=== PATIENT | male | born 1950 | race Caucasian/White ===

== ENCOUNTER 2024-08-15 16:13 | Inpatient (IN) ==
[2024-08-15] MEDS: APRESOLINE INJ 20 MG VIAL IVP ONE ×2 (16:25→21:50)
--- NOTE | 2024-08-15 16:29 | DR.EXTPAIN ---
HPI Time seen Time Seen by Provider: 08/15/24 16:28 PCP Primary Care Physician: NA Complaint/Symptoms Chief Complaint Doctor Comments: This patient fell at home while he was trying to get onto the school this in the house. Now has due to to left chest his skin tear down his left arm and he is a little bit disoriented. Chief Complaint:: Patient was trying to get off the bed and fell and hit his left forearm on the dresser. patient states he has been having more frequent falls. c/o of left forearm pain and back pain but states the back pain was hurting before the fall. patient has a avulsion noted to the left forearm. denies hitting his head. COVID-19 Coronavirus risk:travel/contact w/high risk person: No Has patient experienced Coronavirus symptoms: No Source History Provided: Patient Mode of arrival Mode of Arrival: EMS Timing Onset of Chief Complaint: 08/15/24 PMH PMH Past Medical History: Yes Past Medical History: Hypertension Past Surgical History: Yes Surgical History: Cholecystectomy and Ortho Surgery Past Surgical History Comment: right leg, left hip, left knee Family History History of Family Medical Conditions: Yes Family Medical History: Diabetes Mellitus Social History Does patient currently use any type of tobacco product: Yes Have you used tobacco products in the last 12 months: Yes Type of Tobacco Use: Cigarettes Does any household member use tobacco: Yes Alcohol Use: Occasionally Do you use any recreational Drugs:: No Lives With: Spouse Lives Where: Home Travel Risk Coronavirus risk:travel/contact w/high risk person: No Has patient experienced Coronavirus symptoms: No Infectious screening In the last 2 months have you had wt loss of >10#?: NO Have you had fever, night sweats or hemotysis?: No Have you traveled outside the country in the last 6 months?: No Isolation: Standard ROS Review of Systems Constitutional: Other (Complain of left arm pain with skin tear left side with pain in left shoulder and left flank.) Eyes: No Symptoms Reported ENTM: No Symptoms Reported Respiratoy: No Symptoms Reported Cardiovascular: No Symptoms Reported Gastrointestinal/Abdominal: No Symptoms Reported Genitourinary: No Symptoms Reported Neurological: No Symptoms Reported Musculoskeletal: Left, Shoulder and Arm (pain) Integumentary: Wound (left arm) and Bruises (left arm) Hematologic/Lymphatic: No Symptoms Reported Endocrine: No Symptoms Reported Psychiatric: Depression PE Vital Signs Vitals: Vital Signs Temperature 98.1 F Pulse Rate 72 Pulse Rate 71 Pulse Rate 70 Pulse Rate 69 Pulse Rate 64 Pulse Rate 67 Pulse Rate 70 Pulse Rate 72 Pulse Rate 72 Pulse Rate 73 Pulse Rate 72 Pulse Rate 73 Respiratory Rate 18 Respiratory Rate 18 Respiratory Rate 18 Respiratory Rate 18 Respiratory Rate 18 Blood Pressure 197/91 Blood Pressure 202/86 Blood Pressure 220/97 Blood Pressure 167/120 Blood Pressure 167/120 Blood Pressure 174/81 Blood Pressure 205/93 Blood Pressure 163/126 Blood Pressure 161/77 Blood Pressure 173/77 Blood Pressure 202/86 Blood Pressure 237/105 O2 Sat by Pulse Oximetry 96 O2 Sat by Pulse Oximetry 95 O2 Sat by Pulse Oximetry 95 O2 Sat by Pulse Oximetry 95 O2 Sat by Pulse Oximetry 95 O2 Sat by Pulse Oximetry 96 O2 Sat by Pulse Oximetry 94 O2 Sat by Pulse Oximetry 97 O2 Sat by Pulse Oximetry 96 O2 Sat by Pulse Oximetry 98 O2 Sat by Pulse Oximetry 95 General Limitations: Physical Limitation (bed bound) General Appearance: Lethargic and Obtunded Head Head Exam: Normal Inspection, Atraumatic and Normocephalic Eyes Eye exam: Normal Appearance and PERRL ENT ENT Exam: Normal Exam and Normal Oropharynx Neck Neck Exam: Normal Inspection and Full ROM Chest Chest Inspection: Tenderness (left flank) Respiratory Respiratory Exam: Normal Lung Sounds Bilat Respiratory Exam: Bilateral: Clear to Auscultation Cardiovascular Cardiovascular Exam: Regular Rate Abdominal Exam Abdominal Exam: Normal Inspection and Normal Bowel Sounds Extremities Extremities Exam: Tenderness and Other (skintears and lacerations to left upper arm and forearm) Upper Extremities Shoulder Exam: Tenderness (left shoulder) Arm Exam: Tenderness, Abrasion (left forearm and upper arm) and Laceration (left elbow and forearm) Elbow Exam: Abrasion (left elbow), Laceration (left elbow) and Other (skin tears left forearm and upper arm) Forearm Exam: Tenderness (left) Hand Exam: Normal Inspection Lower Extremities Hip/Pelvis Exam: Normal Inspection Upper Leg Exam: Normal Inspection Knee Exam: Normal Inspection Lower Leg Exam: Normal Inspection Ankle Exam: Normal Inspection Foot/Toe Exam: Normal Inspection Gait Exam: Not Tested/Not Observed Back Back Exam: Normal Inspection Neurological Neurological Exam: Other (disoriented) Psychiatric Psychiatric Exam: Depressed Skin Skin Exam: Other (Abrasion with skin tears and laceration to left forearm elbow and upper arm) MDM Differential Diagnosis Differential Diagnosis: Fracture (left upper,left elbow,left forearm/left shoulder), Laceration (left elbow and forearm) and Other (skin tears to left forearm) COURSE Treatment Treatment: This patient remained relatively stable during ER visit. He had pain he required total of 4 mg morphine IV along with Zofran 4 mg IV for pain. We did do a CT scan of his chest is show a possible acute T12 compression fracture. There was a left rib fracture which is probably old and hit bilateral surgical neck humeral fracture is the age is undetermined it was found out later that the patient had fractured that left humeral about a month ago. Since the patient had always findings and he had a laceration to his left elbow with some abraded versions abrasion and skin tears we consulted with Dr. Dee about this patient and he stated we could wrap that left elbow up and we can put the patient in for further treatment he will evaluate the patient tomorrow determine what other treatment can be offered to him he may go we put him in for rehab after he does what ever procedure he is going to do. He wanted the patient to be on Ancef for antibiotic coverage. The patient spouse was told of the intent to admit and she was agreeable to the admission. Patient will be given Ancef 2 g IV every 8 hours 8 hours. And will be given magnesium sulfate 1 g IV over 1 hour. ROR Labs Reviewed Laboratory Results Reviewed?: Yes 08/15/24 20:15 08/15/24 20:15 Laboratory: WBC 11.3 X10^3/uL (3.6-10.0) H 08/15/24 20:15 RBC 4.00 X10^6/uL (4.7-6.0) L 08/15/24 20:15 Hgb 14.0 g/dL (13.5-18.0) 08/15/24 20:15 Hct 40.7 % (42.0-54.0) L 08/15/24 20:15 MCV 101.7 fL (80.0-100.0) H 08/15/24 20:15 MCH 35.1 pg (27.0-34.0) H 08/15/24 20:15 MCHC 34.5 g/dL (33.0-35.0) 08/15/24 20:15 RDW 14.3 % (11.6-16.5) 08/15/24 20:15 Plt Count 210 X10^3/uL (150.0-450.0) 08/15/24 20:15 MPV 7.3 fL (7.4-11.0) L 08/15/24 20:15 Neut % (Auto) 82.6 % (42.0-75.0) H 08/15/24 20:15 Lymph % (Auto) 10.7 % (21.0-51.0) L 08/15/24 20:15 [place] % (Auto) 5.7 % (0.0-13.0) 08/15/24 20:15 Eos % (Auto) 0.4 % (0.9-2.9) L 08/15/24 20:15 Baso % (Auto) 0.6 % (0.2-1.0) 08/15/24 20:15 Neut # (Auto) 9.3 x10^3/uL (2.2-4.8) H 08/15/24 20:15 Lymph # (Auto) 1.2 X10^3/uL (1.3-2.9) L 08/15/24 20:15 [place] # (Auto) 0.6 x10^3/uL (0.3-0.8) 08/15/24 20:15 Eos # (Auto) 0.0 x10^3/uL (0.0-0.2) 08/15/24 20:15 Baso # (Auto) 0.1 X10^3/uL (0.0-0.1) 08/15/24 20:15 Absolute Nucleated RBC 0.1 /100WBC 08/15/24 20:15 Sodium 142 mmol/L (136-145) 08/15/24 20:15 Corrected Sodium 142 mmol/L (136-145) 08/15/24 20:15 Potassium 4.1 mmol/L (3.5-5.1) 08/15/24 20:15 Chloride 106 mmol/L (98-107) 08/15/24 20:15 Carbon Dioxide 26.9 mmol/L (21-32) 08/15/24 20:15 BUN 13 mg/dL (7-18) 08/15/24 20:15 Creatinine 0.81 mg/dL (0.70-1.30) 08/15/24 20:15 Est GFR (MDRD) Af Amer > 60 (>60) 08/15/24 20:15 Est GFR (MDRD) Non-Af > 60 (>60) 08/15/24 20:15 Glucose 117 mg/dL (65-99) H 08/15/24 20:15 Calcium 8.6 mg/dL (8.5-10.1) 08/15/24 20:15 Corrected Calcium 9.3 mg/dL (8.5-10.1) 08/15/24 20:15 Magnesium 1.6 mg/dL (2.0-2.9) L 08/15/24 20:15 Total Bilirubin 0.40 mg/dL (0.2-1.0) 08/15/24 20:15 AST 22 Units/L (15-37) 08/15/24 20:15 ALT 28 Units/L (12-78) 08/15/24 20:15 Alkaline Phosphatase 109 Units/L (46-116) 08/15/24 20:15 Total Protein 7.0 g/dL (6.4-8.2) 08/15/24 20:15 Albumin 3.1 g/dL (3.4-5.0) L 08/15/24 20:15 Globulin 3.9 g/dL (2.5-4.5) 08/15/24 20:15 Albumin/Globulin Ratio 0.8 Ratio (1.1-2.1) L 08/15/24 20:15 Opioid Opioid Risk Tool Age (Henry box if 16-45): No History of Preadolescent Sexual Abuse: No Total: 0 Total Score Risk Category: Low Risk Copyright: Silviano ALDRIDGE predicting aberrant behaviors Discharge Plan Diagnosis Discharge Problem: Laceration of elbow, left, T12 compression fracture Discharge Plan Patient Disposition: 09 ADMITTED INPATIENT Condition: Stable Prescriptions: No Action methocarbamol 500 mg tablet 500 - 1,000 mg PO TID PRN (Reason: muscle spasm) alendronate 70 mg tablet 70 mg PO QWEEK doxepin 10 mg capsule 10 mg PO QPM aspirin 81 mg Tablet,Delayed Release (Dr/Ec) 81 mg PO QDAY trazodone 300 mg tablet 300 mg PO QPM bupropion HCl 300 mg tablet extended release 24 hr 300 mg PO QDAY baclofen 5 mg tablet 5 mg PO TID hydromorphone [Dilaudid] 2 mg tablet 2 mg PO Q8H MDD 6 mg Qty: 10 0RF hydrocodone-acetaminophen 5-325 mg tablet 1 tab PO Q6H PRN cephalexin 500 mg capsule 500 mg PO TID Trelegy Ellipta 100-62.5-25 mcg blister with device 1 ea INHALATION QDAY Health Concerns: Post Hospitalization: new medications and changes needed to prevent readmission or further decline. Pt educated and given instructions on all concerns. Plan of Treatment: Continue with present treatment and follow up plan. Pt is to keep follow up appointment as instructed and take medications as ordered. Orders to Discharge Patient Discharge Orders: Transfer (Routine); Ordered 08/15/24 Ordered By: Aj Stevenson Follow ups/Referrals Follow ups/Referrals: [facility],None [Primary Care Provider] - 3 days
--- NOTE | 2024-08-15 17:28 | CT ---
EXAM: HEAD CT WITHOUT INTRAVENOUS CONTRASTHISTORY: Traumatic fall head injury.TECHNIQUE: Spiral axial CT images are obtained through the brain without the administration of intravenous contrast. Additional sagittal and coronal reformatted images are reconstructed.DOSIMETRY: Total DLP 959.64 mGycm; CTDI 48 mGyCOMPARISON: None available.FINDINGS:There are extensive patchy parenchymal lucencies within the white matter tracks of the centrum semiovale, consistent with chronic sequela of atherosclerotic microvascular ischemic disease. Atherosclerosis of the intracranial ICAs and vertebral arteries is seen.There is diffuse cerebral cortical atrophy. The centrum semiovale, basal ganglia, cerebellum, and brainstem are otherwise grossly unremarkable for a noncontrast CT scan. There is no acute intracranial hemorrhage, gross acute infarction, mass lesion, midline shift, or hydrocephalus seen. No extra-axial mass or abnormal fluid collection noted.The calvarium is intact. The partially imaged paranasal sinuses, middle ear cavities and mastoid air cells are clear.IMPRESSION:1. No skull fracture, intracranial hemorrhage, mass lesion, midline shift, or hydrocephalus seen.2. Chronic microvascular ischemic disease, but no discernible acute infarction seen. Consider followup MRI with diffusion-weighted imaging to rule out occult acute infarction if clinically warranted.3. Atherosclerosis of the intracranial ICAs and vertebral arteries is seen. Consider follow-up MRA as clinically warranted.THIS IS AN ELECTRONICALLY VERIFIED FINAL [id number]/15/2024 5:25 PM - Electronically signed by Lindsey Gaitan MD
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
[2024-08-15] MEDS ORDERED: MORPHINE SULFATE INJ 2 MG INJ ONE (18:06)
[2024-08-15] MEDS: MORPHINE SULFATE INJ 2 MG INJ IVP ONE ×2 (18:10→19:01)
[2024-08-15] MEDS: ZOFRAN INJ 4 MG VIAL IVP ONE (18:10)
[2024-08-15] MEDS ORDERED: STERILE WATER IRRIGATION IR ONE (18:33)
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
[2024-08-15] MEDS: STERILE WATER IRRIGATION IR ONE (19:04)
[2024-08-15 20:22] LABS: BASOPHILS # (AUTO) 0.1 X10^3/uL (0.0-0.1); BASOPHILS % (AUTO) 0.6 % (0.2-1.0); EOSINOPHILS % (AUTO) 0.4 % (0.9-2.9); HEMATOCRIT 40.7 % (42.0-54.0); LYMPHOCYTES # (AUTO) 1.2 X10^3/uL (1.3-2.9); LYMPHOCYTES % (AUTO) 10.7 % (21.0-51.0); MEAN CORPUSCULAR HEMOGLOBIN 35.1 pg (27.0-34.0); MEAN CORPUSCULAR HGB CONC 34.5 g/dL (33.0-35.0); MEAN CORPUSCULAR VOLUME 101.7 fL (80.0-100.0); MEAN PLATELET VOLUME 7.3 fL (7.4-11.0); MONOCYTES # (AUTO) 0.6 x10^3/uL (0.3-0.8); MONOCYTES % (AUTO) 5.7 % (0.0-13.0); NEUTROPHILS # (AUTO) 9.3 x10^3/uL (2.2-4.8); NEUTROPHILS % (AUTO) 82.6 % (42.0-75.0); PLATELET COUNT 210 X10^3/uL (150.0-450.0); RED CELL DISTRIBUTION WIDTH 14.3 % (11.6-16.5); WHITE BLOOD COUNT 11.3 X10^3/uL (3.6-10.0)
[2024-08-15] MEDS ORDERED: ANCEF VIAL 1 GRAM ONE (20:27)
[2024-08-15] MEDS: ANCEF VIAL 1 GRAM IVP SCH (20:29)
[2024-08-15] MEDS: NS 1,000 ML IV 1,000 ML IV SCH (20:30)
[2024-08-15 20:39] LABS: ALANINE AMINOTRANSFERASE 28 Units/L (12-78); ALBUMIN 3.1 g/dL (3.4-5.0); ALKALINE PHOSPHATASE 109 Units/L (46-116); ASPARTATE AMINO TRANSFERASE 22 Units/L (15-37); BLOOD UREA NITROGEN 13 mg/dL (7-18); CALCIUM 8.6 mg/dL (8.5-10.1); CARBON DIOXIDE 26.9 mmol/L (21-32); CHLORIDE 106 mmol/L (98-107); COR CA(FOR HYPOALB) 9.3 mg/dL (8.5-10.1); COR NA(FOR HYPERGLY) 142 mmol/L (136-145); CREATININE 0.81 mg/dL (0.70-1.30); GLUCOSE 117 mg/dL (65-99); MAGNESIUM 1.6 mg/dL (2.0-2.9); POTASSIUM 4.1 mmol/L (3.5-5.1); SODIUM 142 mmol/L (136-145); eGFR NON BLACK RACES > 60 (>60)
[2024-08-15] MEDS ORDERED: MAGNESIUM SULFATE 1 GRAM/100 mL PREMIX 1 G/100 ML BAG IV ONE (21:38)
[2024-08-15] MEDS: MAGNESIUM SULFATE 1 GRAM/100 mL PREMIX 1 G/100 ML BAG IV SCH (21:39)
[2024-08-15] MEDS ORDERED: KETAMINE HCL ONE (21:42)
[2024-08-15] MEDS ORDERED: PRECEDEX INJ VIAL ONE (21:42)
[2024-08-15] MEDS ORDERED: ANCEF VIAL 1 GRAM IVP SCH (22:00)
[2024-08-15 23:35] VITALS: BMI 26.4
[2024-08-15 23:51] LABS: BILIRUBIN,URINE NEGATIVE (NEGATIVE); BLOOD/HEMOGLOBIN,URINE NEGATIVE (NEGATIVE); GLUCOSE, URINE NEGATIVE (NEGATIVE); KETONES,URINE NEGATIVE (NEGATIVE); LEUKOCYTE ESTERASE ,URINE NEGATIVE (NEGATIVE); NITRITES,URINE NEGATIVE (NEGATIVE); PROTEIN,URINE 1+ (NEGATIVE); UROBILINOGEN,URINE NORMAL (NORMAL)
[2024-08-16 00:02] LABS: APPEARANCE,URINE CLEAR (CLEAR); COLOR,URINE YELLOW (YELLOW)
[2024-08-16 00:13] LABS: BACTERIA,URINE TRACE /HPF (NEGATIVE); SQUAMOUS EPITHELIAL CELL,UR FEW /HPF (NEGATIVE)
[2024-08-16 06:37] LABS: BASOPHILS # (AUTO) 0.1 X10^3/uL (0.0-0.1); BASOPHILS % (AUTO) 0.9 % (0.2-1.0); EOSINOPHILS % (AUTO) 0.5 % (0.9-2.9); HEMATOCRIT 37.6 % (42.0-54.0); LYMPHOCYTES # (AUTO) 1.1 X10^3/uL (1.3-2.9); LYMPHOCYTES % (AUTO) 11.5 % (21.0-51.0); MEAN CORPUSCULAR HGB CONC 34.6 g/dL (33.0-35.0); MEAN PLATELET VOLUME 8.1 fL (7.4-11.0); MONOCYTES # (AUTO) 0.7 x10^3/uL (0.3-0.8); MONOCYTES % (AUTO) 7.5 % (0.0-13.0); NEUTROPHILS # (AUTO) 7.7 x10^3/uL (2.2-4.8); NEUTROPHILS % (AUTO) 79.6 % (42.0-75.0); PLATELET COUNT 243 X10^3/uL (150.0-450.0); RED BLOOD COUNT 3.72 X10^6/uL (4.7-6.0); RED CELL DISTRIBUTION WIDTH 14.1 % (11.6-16.5); WHITE BLOOD COUNT 9.6 X10^3/uL (3.6-10.0)
[2024-08-16 06:50] LABS: ALANINE AMINOTRANSFERASE 36 Units/L (12-78); ALKALINE PHOSPHATASE 101 Units/L (46-116); ASPARTATE AMINO TRANSFERASE 22 Units/L (15-37); BLOOD UREA NITROGEN 12 mg/dL (7-18); CALCIUM 8.3 mg/dL (8.5-10.1); CARBON DIOXIDE 30.6 mmol/L (21-32); CHLORIDE 105 mmol/L (98-107); COR CA(FOR HYPOALB) 9.1 mg/dL (8.5-10.1); CREATININE 0.75 mg/dL (0.70-1.30); GLUCOSE 110 mg/dL (65-99); MAGNESIUM 2.4 mg/dL (2.0-2.9); POTASSIUM 3.9 mmol/L (3.5-5.1); SODIUM 140 mmol/L (136-145); TOTAL PROTEIN 6.7 g/dL (6.4-8.2); eGFR NON BLACK RACES > 60 (>60)
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
[2024-08-16] MEDS: APRESOLINE INJ 20 MG VIAL ONE (08:44)
[2024-08-16] MEDS: NS 1,000 ML IV 1,000 ML ONE (08:44)
[2024-08-16] MEDS: ZOFRAN INJ 4 MG VIAL ONE (08:44)
[2024-08-16] MEDS: NS 100 ML IV 100 ML ONE (08:44)
[2024-08-16] MEDS: DUONEB 0.5 MG/3 MG (3 mL) NEB SCH (08:56)
[2024-08-16] MEDS: PULMICORT NEB TX 0.5 MG NEB SCH (08:56)
[2024-08-16] MEDS ORDERED: PATIENT'S HOME MEDICATION (Fluticasone-Umeclidin-Vilanter [Trelegy Ellipta] 100-62.5-25 mc IN SCH (09:00)
[2024-08-16] MEDS ORDERED: PHENOBARBITAL SODIUM INJ 65 MG VIAL IM PRN (09:20)
[2024-08-16] MEDS ORDERED: MAALOX or MYLANTA PO PRN (09:20)
[2024-08-16] MEDS ORDERED: MILK OF MAGNESIA PO PRN (09:20)
[2024-08-16] MEDS ORDERED: LIBRIUM PO PRN (09:20)
[2024-08-16] MEDS ORDERED: KAOPECTATE (NEW FORMULA) PO PRN (09:20)
[2024-08-16] MEDS: WELLBUTRIN XL 300 MG (DAILY) PO SCH (09:27)
[2024-08-16] MEDS: PHENOBARBITAL TAB 30 MG (32.4MG) PO SCH (10:05)
[2024-08-16] MEDS: MAGNESIUM SULFATE 1 GRAM/100 mL PREMIX 1 G/100 ML BAG IV SCH (10:16)
[2024-08-16] MEDS: THIAMINE HCL INJ IVP SCH (10:16)
[2024-08-16] MEDS: PHENOBARBITAL SODIUM INJ 65 MG VIAL IVP SCH (10:19)
[2024-08-16 10:23] LABS: HEMOGLOBIN 13.2 g/dL (13.5-18.0); MEAN CORPUSCULAR HEMOGLOBIN 34.6 pg (27.0-34.0)
[2024-08-16 10:28] LABS: BASOPHILS # (AUTO) 0.1 X10^3/uL (0.0-0.1); BASOPHILS % (AUTO) 0.8 % (0.2-1.0); EOSINOPHILS % (AUTO) 0.5 % (0.9-2.9); HEMATOCRIT 38.5 % (42.0-54.0); LYMPHOCYTES # (AUTO) 1.4 X10^3/uL (1.3-2.9); LYMPHOCYTES % (AUTO) 13.9 % (21.0-51.0); MEAN CORPUSCULAR HGB CONC 34.3 g/dL (33.0-35.0); MEAN CORPUSCULAR VOLUME 100.9 fL (80.0-100.0); MEAN PLATELET VOLUME 7.6 fL (7.4-11.0); MONOCYTES # (AUTO) 0.8 x10^3/uL (0.3-0.8); MONOCYTES % (AUTO) 7.7 % (0.0-13.0); NEUTROPHILS # (AUTO) 7.6 x10^3/uL (2.2-4.8); NEUTROPHILS % (AUTO) 77.1 % (42.0-75.0); PLATELET COUNT 235 X10^3/uL (150.0-450.0); RED BLOOD COUNT 3.81 X10^6/uL (4.7-6.0); WHITE BLOOD COUNT 9.8 X10^3/uL (3.6-10.0)
--- NOTE | 2024-08-16 10:31 | CT ---
EXAM: CT head without contrast HISTORY: AMS; COMPARISON: None TECHNIQUE: Axial, coronal and sagittal CT imaging was performed through the head without contrast administratio n. Dose reduction techniques including Automated Exposure Control (AEC) and adjustment of mA and kV were utilized. FINDINGS: BRAIN: No acute hemorrhage or extraaxial collection. No mass or midline shift. No evidence of acute territorial infarction. Age-appropriate atrophy with moderate chronic microangiopathy and expected size of the ventricles. ORBITS:No significant abnormality. SINUSES:No significant abnormality. SOFT TISSUES: No significant abnormality. BONES: No significant abnormality. IMPRESSION: No acute intracranial abnormality. Other chronic findings as above. THIS IS AN ELECTRONICALLY VERIFIED FINAL REPORT 08/16/2024 10:27 AM - Electronically signed by Ambrocio Saul MD
--- NOTE | 2024-08-16 10:45 | DR.PROGNOT ---
HOSPITAL PROGRESS NOTE Progress Note for Day of: Progress Note Date: 08/16/24 Chief Complaint Chief Complaint: Patient is obtunded today and having some tremors which is somewhat more noticeable than yesterday. White count is 9.8, blood sugar 110, liver function tests are normal, albumin is 3, folate level is low 6.3, B12 is normal. BUN and creatinine are normal. Stable vital signs. Somewhat obtunded and does not answer questions. Past Medical Family Social History Allergies: Allergies lisinopril Allergy (Unknown, Verified 07/16/24 20:50) sulfamethoxazole [From Bactrim] Allergy (Unknown, Verified 07/16/24 20:50) Tetanus Vaccines and Toxoid Allergy (Unknown, Verified 07/16/24 20:50) trimethoprim [From Bactrim] Allergy (Unknown, Verified 07/16/24 20:50) Vital Signs Vital Signs: Vital Signs Temperature 97.8 F Temperature 97.8 F Pulse Rate [Left Radial] 59 Pulse Rate [Left Radial] 85 Pulse Rate 68 Respiratory Rate 19 Respiratory Rate 18 Blood Pressure [Right Arm] 163/71 Blood Pressure [Right Arm] 135/64 O2 Sat by Pulse Oximetry 94 O2 Sat by Pulse Oximetry 95 O2 Sat by Pulse Oximetry 93 Physical Exam Oriented: Not Oriented Eyes: Normal Ear: Normal Nose: Normal Throat: Normal Respiratory: Normal Cardiovascular: Normal GI:Auscultation: Normal GI:Palpation: Normal Musculoskeletal: Arm (Patient has multiple lacerations on the left arm and forearm with avulsed skin, Xeroform dressing in place which will be left intact today) Mood Description: Withdrawn Speech Pattern: Unclear and Inappropriate Laboratory and Diagnostics 08/16/24 10:12 08/16/24 05:28 Labs: Laboratory WBC 9.8 X10^3/uL (3.6-10.0) 08/16/24 10:12 RBC 3.81 X10^6/uL (4.7-6.0) L 08/16/24 10:12 Hgb 13.2 g/dL (13.5-18.0) L 08/16/24 10:12 Hct 38.5 % (42.0-54.0) L 08/16/24 10:12 MCV 100.9 fL (80.0-100.0) H 08/16/24 10:12 MCH 34.6 pg (27.0-34.0) H 08/16/24 10:12 MCHC 34.3 g/dL (33.0-35.0) 08/16/24 10:12 RDW 14.0 % (11.6-16.5) 08/16/24 10:12 Plt Count 235 X10^3/uL (150.0-450.0) 08/16/24 10:12 MPV 7.6 fL (7.4-11.0) 08/16/24 10:12 Neut % (Auto) 77.1 % (42.0-75.0) H 08/16/24 10:12 Lymph % (Auto) 13.9 % (21.0-51.0) L 08/16/24 10:12 [place] % (Auto) 7.7 % (0.0-13.0) 08/16/24 10:12 Eos % (Auto) 0.5 % (0.9-2.9) L 08/16/24 10:12 Baso % (Auto) 0.8 % (0.2-1.0) 08/16/24 10:12 Neut # (Auto) 7.6 x10^3/uL (2.2-4.8) H 08/16/24 10:12 Lymph # (Auto) 1.4 X10^3/uL (1.3-2.9) 08/16/24 10:12 [place] # (Auto) 0.8 x10^3/uL (0.3-0.8) 08/16/24 10:12 Eos # (Auto) 0.0 x10^3/uL (0.0-0.2) 08/16/24 10:12 Baso # (Auto) 0.1 X10^3/uL (0.0-0.1) 08/16/24 10:12 Absolute Nucleated RBC 0.0 /100WBC 08/16/24 10:12 Sodium 140 mmol/L (136-145) 08/16/24 05:28 Corrected Sodium TNP 08/16/24 05:28 Potassium 3.9 mmol/L (3.5-5.1) 08/16/24 05:28 Chloride 105 mmol/L (98-107) 08/16/24 05:28 Carbon Dioxide 30.6 mmol/L (21-32) 08/16/24 05:28 BUN 12 mg/dL (7-18) 08/16/24 05:28 Creatinine 0.75 mg/dL (0.70-1.30) 08/16/24 05:28 Est GFR (MDRD) Af Amer > 60 (>60) 08/16/24 05:28 Est GFR (MDRD) Non-Af > 60 (>60) 08/16/24 05:28 Glucose 110 mg/dL (65-99) H 08/16/24 05:28 POC Glucose (mg/dL) 115 mg/dL (65-99) H 08/16/24 05:26 Calcium 8.3 mg/dL (8.5-10.1) L 08/16/24 05:28 Corrected Calcium 9.1 mg/dL (8.5-10.1) 08/16/24 05:28 Magnesium 2.4 mg/dL (2.0-2.9) 08/16/24 05:28 Total Bilirubin 0.60 mg/dL (0.2-1.0) 08/16/24 05:28 AST 22 Units/L (15-37) 08/16/24 05:28 ALT 36 Units/L (12-78) 08/16/24 05:28 Alkaline Phosphatase 101 Units/L (46-116) 08/16/24 05:28 Total Protein 6.7 g/dL (6.4-8.2) 08/16/24 05:28 Albumin 3.0 g/dL (3.4-5.0) L 08/16/24 05:28 Globulin 3.7 g/dL (2.5-4.5) 08/16/24 05:28 Albumin/Globulin Ratio 0.8 Ratio (1.1-2.1) L 08/16/24 05:28 Vitamin B12 432 pg/mL (193-986) 08/16/24 05:28 Folate 6.3 ng/mL (>8.6) L 08/16/24 05:28 Specimen Type Clean catch urine 08/15/24 23:39 Urine Color Yellow (YELLOW) 08/15/24 23:39 Urine Appearance Clear (CLEAR) 08/15/24 23:39 Urine pH 6.0 (5.0 - 8.0) 08/15/24 23:39 Ur Specific [place] 1.025 (1.000-1.030) 08/15/24 23:39 Urine Protein 1+ (NEGATIVE) 08/15/24 23:39 Urine Glucose (UA) Negative (NEGATIVE) 08/15/24 23:39 Urine Ketones Negative (NEGATIVE) 08/15/24 23:39 Urine Blood Negative (NEGATIVE) 08/15/24 23:39 Urine Nitrite Negative (NEGATIVE) 08/15/24 23:39 Urine Bilirubin Negative (NEGATIVE) 08/15/24 23:39 Urine Urobilinogen Normal (NORMAL) 08/15/24 23:39 Ur Leukocyte Esterase Negative (NEGATIVE) 08/15/24 23:39 Urine RBC 3-5 /HPF (0-3) A 08/15/24 23:39 Urine WBC 0-2 /HPF (0-5) 08/15/24 23:39 Ur Squamous Epith Cells Few /HPF (NEGATIVE) 08/15/24 23:39 Amorphous Sediment 1+ /HPF (NEGATIVE) 08/15/24 23:39 Urine Bacteria Trace /HPF (NEGATIVE) 08/15/24 23:39 Urine Mucus Moderate /HPF (NEGATIVE) 08/15/24 23:39 Ur Culture Indicated? No/not indicated 08/15/24 23:39 Assessment and Plan 1: Frequent falls and changes in mental status. For repeated brain CT scan. 2: Tremors and restlessness which could be related to alcohol abuse. On IV fluid with added vitamins and moderate sedation, Dr. Magallon is addressing these issues. 3: Multiple lacerations on the left arm and forearm being observed and dressed with Xeroform dressing. Problem Patient Problems: Patient Problems (Updated 08/15/24 @ 21:42 by Aj Stevenson) Laceration of elbow, left (Acute) S51.012A T12 compression fracture (Acute) S22.080A
[2024-08-16] MEDS: MICARDIS PO SCH (19:39)
[2024-08-16] MEDS: AMBIEN PO SCH (21:45)
[2024-08-16] MEDS: SINEquan PO SCH (21:45)
[2024-08-17] MEDS: CATAPRES TAB 0.1 MG PO ONE (03:59)
--- NOTE | 2024-08-17 04:04 | EKG ---
Test Reason : Hypertension Blood Pressure : */* mmHG Vent. Rate : 82 BPM Atrial Rate : 82 BPM P-R Int : 174 ms QRS Dur : 84 ms QT Int : 400 ms P-R-T Axes : 37 -20 40 degrees QTc Int : 467 ms Sinus rhythm with occasional premature ventricular complexes and premature atrial complexes Septal infarct , age undetermined Abnormal ECG No previous ECGs available Confirmed by Addison Day MD ([id number]) on 08/17/2024 11:21:36 AM Referred By: Confirmed By: Addison Day MD
[2024-08-17] MEDS: NORCO 5/325 MG TAB PO PRN (04:34)
[2024-08-17] MEDS: APRESOLINE INJ 20 MG VIAL IVP ONE (05:23)
[2024-08-17] MEDS: APRESOLINE INJ 20 MG VIAL ONE (05:27)
[2024-08-17 05:31] LABS: BASOPHILS # (AUTO) 0.1 X10^3/uL (0.0-0.1); BASOPHILS % (AUTO) 1.2 % (0.2-1.0); EOSINOPHILS # (AUTO) 0.2 x10^3/uL (0.0-0.2); EOSINOPHILS % (AUTO) 2.4 % (0.9-2.9); HEMATOCRIT 35.7 % (42.0-54.0); HEMOGLOBIN 12.5 g/dL (13.5-18.0); LYMPHOCYTES # (AUTO) 1.6 X10^3/uL (1.3-2.9); LYMPHOCYTES % (AUTO) 20.9 % (21.0-51.0); MEAN CORPUSCULAR HEMOGLOBIN 35.2 pg (27.0-34.0); MEAN CORPUSCULAR HGB CONC 35.2 g/dL (33.0-35.0); MEAN PLATELET VOLUME 7.9 fL (7.4-11.0); MONOCYTES # (AUTO) 0.7 x10^3/uL (0.3-0.8); MONOCYTES % (AUTO) 8.8 % (0.0-13.0); NEUTROPHILS # (AUTO) 5.2 x10^3/uL (2.2-4.8); NEUTROPHILS % (AUTO) 66.7 % (42.0-75.0); PLATELET COUNT 216 X10^3/uL (150.0-450.0); RED BLOOD COUNT 3.57 X10^6/uL (4.7-6.0); RED CELL DISTRIBUTION WIDTH 13.8 % (11.6-16.5); WHITE BLOOD COUNT 7.8 X10^3/uL (3.6-10.0)
[2024-08-17 05:42] LABS: ALANINE AMINOTRANSFERASE 52 Units/L (12-78); ALBUMIN 2.7 g/dL (3.4-5.0); ALKALINE PHOSPHATASE 101 Units/L (46-116); ASPARTATE AMINO TRANSFERASE 30 Units/L (15-37); BLOOD UREA NITROGEN 12 mg/dL (7-18); CALCIUM 7.8 mg/dL (8.5-10.1); CARBON DIOXIDE 26.9 mmol/L (21-32); CHLORIDE 106 mmol/L (98-107); COR CA(FOR HYPOALB) 8.8 mg/dL (8.5-10.1); CREATININE 0.77 mg/dL (0.70-1.30); GLUCOSE 94 mg/dL (65-99); POTASSIUM 3.8 mmol/L (3.5-5.1); SODIUM 140 mmol/L (136-145); TOTAL PROTEIN 6.3 g/dL (6.4-8.2); eGFR NON BLACK RACES > 60 (>60)
[2024-08-17] MEDS ORDERED: CONSULT PHARMACY - POTASSIUM & MAGNESIUM XX SCH (06:00)
[2024-08-17] MEDS: K-DUR TAB 20 MEQ PO SCH ×2 (07:03→09:12)
--- NOTE | 2024-08-17 11:06 | DR.PROGNOT ---
HOSPITAL PROGRESS NOTE Progress Note for Day of: Progress Note Date: 08/17/24 Chief Complaint Chief Complaint: Patient is more alert today, able to talk and express himself. Complaining of nausea and moderate abdominal pain, no vomiting, was able to have his breakfast. Brain CT scan showed no changes, basically unremarkable exam. White count 7.8, hemoglobin 12.5, BUN/creatinine are normal, magnesium slightly low 1.8, liver function tests were normal. Afebrile and stable vital signs, Abdomen is soft with diffuse tenderness, bowel sounds present. Left arm wounds no changes. Has good distal pulses with intact sensation. Past Medical Family Social History Allergies: Allergies lisinopril Allergy (Unknown, Verified 07/16/24 20:50) sulfamethoxazole [From Bactrim] Allergy (Unknown, Verified 07/16/24 20:50) Tetanus Vaccines and Toxoid Allergy (Unknown, Verified 07/16/24 20:50) trimethoprim [From Bactrim] Allergy (Unknown, Verified 07/16/24 20:50) Review Of Systems ROS: No change since H&P Vital Signs Vital Signs: Vital Signs Temperature 97.7 F Temperature 98.0 F Pulse Rate [Left Radial] 67 Pulse Rate [Left Radial] 80 Respiratory Rate 19 Respiratory Rate 20 Respiratory Rate 20 Respiratory Rate 20 Blood Pressure [Right Arm] 134/64 Blood Pressure [Right Arm] 150/70 Blood Pressure [Right Arm] 144/65 Blood Pressure [Right Arm] 187/82 Blood Pressure [Right Arm] 188/79 Blood Pressure [Right Arm] 166/84 Blood Pressure [Right Arm] 155/76 Blood Pressure [Right Arm] 152/77 Blood Pressure [Right Arm] 178/88 Blood Pressure [Right Arm] 189/87 O2 Sat by Pulse Oximetry 96 O2 Sat by Pulse Oximetry 95 Physical Exam Oriented: Normal (Alert oriented and cooperative.) Eyes: Normal Ear: Normal Nose: Normal Throat: Normal Respiratory: Normal Cardiovascular: Normal GI:Auscultation: Normal GI:Palpation: Normal Skin: Other (Deep laceration left arm and forearm, no actively bleeding, normal circulation and sensation distally.) Musculoskeletal: Arm (Patient has multiple lacerations on the left arm and forearm with avulsed skin, Xeroform dressing in place which will be left intact today) Mood Description: Withdrawn Speech Pattern: Clear and Delayed Laboratory and Diagnostics 08/17/24 05:06 08/17/24 05:06 Labs: Laboratory WBC 7.8 X10^3/uL (3.6-10.0) 08/17/24 05:06 RBC 3.57 X10^6/uL (4.7-6.0) L 08/17/24 05:06 Hgb 12.5 g/dL (13.5-18.0) L 08/17/24 05:06 Hct 35.7 % (42.0-54.0) L 08/17/24 05:06 MCV 100.0 fL (80.0-100.0) 08/17/24 05:06 MCH 35.2 pg (27.0-34.0) H 08/17/24 05:06 MCHC 35.2 g/dL (33.0-35.0) H 08/17/24 05:06 RDW 13.8 % (11.6-16.5) 08/17/24 05:06 Plt Count 216 X10^3/uL (150.0-450.0) 08/17/24 05:06 MPV 7.9 fL (7.4-11.0) 08/17/24 05:06 Neut % (Auto) 66.7 % (42.0-75.0) 08/17/24 05:06 Lymph % (Auto) 20.9 % (21.0-51.0) L 08/17/24 05:06 [place] % (Auto) 8.8 % (0.0-13.0) 08/17/24 05:06 Eos % (Auto) 2.4 % (0.9-2.9) 08/17/24 05:06 Baso % (Auto) 1.2 % (0.2-1.0) H 08/17/24 05:06 Neut # (Auto) 5.2 x10^3/uL (2.2-4.8) H 08/17/24 05:06 Lymph # (Auto) 1.6 X10^3/uL (1.3-2.9) 08/17/24 05:06 [place] # (Auto) 0.7 x10^3/uL (0.3-0.8) 08/17/24 05:06 Eos # (Auto) 0.2 x10^3/uL (0.0-0.2) 08/17/24 05:06 Baso # (Auto) 0.1 X10^3/uL (0.0-0.1) 08/17/24 05:06 Absolute Nucleated RBC 0.0 /100WBC 08/17/24 05:06 Sodium 140 mmol/L (136-145) 08/17/24 05:06 Corrected Sodium TNP 08/17/24 05:06 Potassium 3.8 mmol/L (3.5-5.1) 08/17/24 05:06 Chloride 106 mmol/L (98-107) 08/17/24 05:06 Carbon Dioxide 26.9 mmol/L (21-32) 08/17/24 05:06 BUN 12 mg/dL (7-18) 08/17/24 05:06 Creatinine 0.77 mg/dL (0.70-1.30) 08/17/24 05:06 Est GFR (MDRD) Af Amer > 60 (>60) 08/17/24 05:06 Est GFR (MDRD) Non-Af > 60 (>60) 08/17/24 05:06 Glucose 94 mg/dL (65-99) 08/17/24 05:06 POC Glucose (mg/dL) 115 mg/dL (65-99) H 08/16/24 05:26 Calcium 7.8 mg/dL (8.5-10.1) L 08/17/24 05:06 Corrected Calcium 8.8 mg/dL (8.5-10.1) 08/17/24 05:06 Magnesium 1.8 mg/dL (2.0-2.9) L 08/17/24 05:06 Total Bilirubin 0.70 mg/dL (0.2-1.0) 08/17/24 05:06 AST 30 Units/L (15-37) 08/17/24 05:06 ALT 52 Units/L (12-78) 08/17/24 05:06 Alkaline Phosphatase 101 Units/L (46-116) 08/17/24 05:06 Total Protein 6.3 g/dL (6.4-8.2) L 08/17/24 05:06 Albumin 2.7 g/dL (3.4-5.0) L 08/17/24 05:06 Globulin 3.6 g/dL (2.5-4.5) 08/17/24 05:06 Albumin/Globulin Ratio 0.8 Ratio (1.1-2.1) L 08/17/24 05:06 Vitamin B12 432 pg/mL (193-986) 08/16/24 05:28 Folate 6.3 ng/mL (>8.6) L 08/16/24 05:28 Specimen Type Clean catch urine 08/15/24 23:39 Urine Color Yellow (YELLOW) 08/15/24 23:39 Urine Appearance Clear (CLEAR) 08/15/24 23:39 Urine pH 6.0 (5.0 - 8.0) 08/15/24 23:39 Ur Specific [place] 1.025 (1.000-1.030) 08/15/24 23:39 Urine Protein 1+ (NEGATIVE) 08/15/24 23:39 Urine Glucose (UA) Negative (NEGATIVE) 08/15/24 23:39 Urine Ketones Negative (NEGATIVE) 08/15/24 23:39 Urine Blood Negative (NEGATIVE) 08/15/24 23:39 Urine Nitrite Negative (NEGATIVE) 08/15/24 23:39 Urine Bilirubin Negative (NEGATIVE) 08/15/24 23:39 Urine Urobilinogen Normal (NORMAL) 08/15/24 23:39 Ur Leukocyte Esterase Negative (NEGATIVE) 08/15/24 23:39 Urine RBC 3-5 /HPF (0-3) A 08/15/24 23:39 Urine WBC 0-2 /HPF (0-5) 08/15/24 23:39 Ur Squamous Epith Cells Few /HPF (NEGATIVE) 08/15/24 23:39 Amorphous Sediment 1+ /HPF (NEGATIVE) 08/15/24 23:39 Urine Bacteria Trace /HPF (NEGATIVE) 08/15/24 23:39 Urine Mucus Moderate /HPF (NEGATIVE) 08/15/24 23:39 Ur Culture Indicated? No/not indicated 08/15/24 23:39 Ethyl Alcohol mg/dL < 3 mg/dL (0-19.9) 08/16/24 10:12 Assessment and Plan 1: Frequent falls. Patient is more alert and oriented today. 2: Tremors and restlessness which could be related to alcohol abuse. On IV fluid with added vitamins and moderate sedation, Dr. Magallon is addressing these issues. 3: Multiple lacerations on the left arm and forearm being observed and dressed with Xeroform dressing. Problem Patient Problems: Patient Problems Laceration of elbow, left (Acute) S51.012A T12 compression fracture (Acute) S22.080A
[2024-08-18 06:00] LABS: EOSINOPHILS # (AUTO) 0.4 x10^3/uL (0.0-0.2); EOSINOPHILS % (AUTO) 4.6 % (0.9-2.9); HEMOGLOBIN 13.2 g/dL (13.5-18.0); MONOCYTES # (AUTO) 0.6 x10^3/uL (0.3-0.8); MONOCYTES % (AUTO) 6.6 % (0.0-13.0)
[2024-08-18 06:07] LABS: BASOPHILS # (AUTO) 0.1 X10^3/uL (0.0-0.1); BASOPHILS % (AUTO) 1.2 % (0.2-1.0); HEMATOCRIT 38.3 % (42.0-54.0); LYMPHOCYTES # (AUTO) 2.1 X10^3/uL (1.3-2.9); LYMPHOCYTES % (AUTO) 21.7 % (21.0-51.0); MEAN CORPUSCULAR HGB CONC 34.6 g/dL (33.0-35.0); MEAN CORPUSCULAR VOLUME 101.1 fL (80.0-100.0); MEAN PLATELET VOLUME 7.9 fL (7.4-11.0); NEUTROPHILS # (AUTO) 6.3 x10^3/uL (2.2-4.8); NEUTROPHILS % (AUTO) 65.9 % (42.0-75.0); PLATELET COUNT 240 X10^3/uL (150.0-450.0); RED BLOOD COUNT 3.79 X10^6/uL (4.7-6.0); RED CELL DISTRIBUTION WIDTH 14.2 % (11.6-16.5); WHITE BLOOD COUNT 9.5 X10^3/uL (3.6-10.0)
[2024-08-18 06:15] LABS: ALANINE AMINOTRANSFERASE 34 Units/L (12-78); ALKALINE PHOSPHATASE 107 Units/L (46-116); ASPARTATE AMINO TRANSFERASE 20 Units/L (15-37); BLOOD UREA NITROGEN 17 mg/dL (7-18); CALCIUM 8.3 mg/dL (8.5-10.1); CARBON DIOXIDE 26.2 mmol/L (21-32); CHLORIDE 108 mmol/L (98-107); COR CA(FOR HYPOALB) 9.1 mg/dL (8.5-10.1); CREATININE 0.89 mg/dL (0.70-1.30); GLUCOSE 98 mg/dL (65-99); MAGNESIUM 2.1 mg/dL (2.0-2.9); POTASSIUM 3.9 mmol/L (3.5-5.1); SODIUM 143 mmol/L (136-145); TOTAL PROTEIN 6.7 g/dL (6.4-8.2); eGFR NON BLACK RACES > 60 (>60)
[2024-08-18] MEDS ORDERED: PEPCID TAB 20 MG PO PRN (12:00)
[2024-08-18] MEDS: TENORMIN PO SCH (12:21)
[2024-08-18] MEDS: MYSOLINE TAB 250 MG PO SCH (12:21)
[2024-08-18] MEDS: ROBAXIN PO SCH (15:19)
--- NOTE | 2024-08-18 16:36 | DR.PROGNOT ---
HOSPITAL PROGRESS NOTE Progress Note for Day of: Progress Note Date: 08/18/24 Chief Complaint Chief Complaint: Patient is more alert today, able to talk and express himself. no abdominal pain today, no vomiting, was able to have his breakfast. Brain CT scan showed no changes, basically unremarkable exam. White count 9.5 . hemoglobin 12.5, BUN/creatinine are normal, magnesium slightly low 1.8, liver function tests were normal. Afebrile and stable vital signs, Abdomen is soft with diffuse tenderness, bowel sounds present. Left arm wounds no changes. Has good distal pulses with intact sensation. Past Medical Family Social History Allergies: Allergies lisinopril Allergy (Unknown, Verified 07/16/24 20:50) sulfamethoxazole [From Bactrim] Allergy (Unknown, Verified 07/16/24 20:50) Tetanus Vaccines and Toxoid Allergy (Unknown, Verified 07/16/24 20:50) trimethoprim [From Bactrim] Allergy (Unknown, Verified 07/16/24 20:50) Review Of Systems ROS: No change since H&P Vital Signs Vital Signs: Vital Signs Temperature 98.4 F Temperature 98.3 F Pulse Rate [Left Radial] 90 Pulse Rate [Left Radial] 89 Pulse Rate 88 Respiratory Rate 20 Respiratory Rate 20 Blood Pressure [Right Arm] 140/78 Blood Pressure [Right Arm] 151/68 O2 Sat by Pulse Oximetry 97 O2 Sat by Pulse Oximetry 97 O2 Sat by Pulse Oximetry 96 Physical Exam Oriented: Normal (Alert oriented and cooperative.) Eyes: Normal Ear: Normal Nose: Normal Throat: Normal Respiratory: Normal Cardiovascular: Normal GI:Auscultation: Normal GI:Palpation: Normal Skin: Other (Deep laceration left arm and forearm, no actively bleeding, normal circulation and sensation distally.) Musculoskeletal: Arm (Patient has multiple lacerations on the left arm and forearm with avulsed skin, Xeroform dressing in place which will be left intact today) Mood Description: Calm Speech Pattern: Clear Laboratory and Diagnostics 08/18/24 05:45 08/18/24 05:45 Labs: Laboratory WBC 9.5 X10^3/uL (3.6-10.0) 08/18/24 05:45 RBC 3.79 X10^6/uL (4.7-6.0) L 08/18/24 05:45 Hgb 13.2 g/dL (13.5-18.0) L 08/18/24 05:45 Hct 38.3 % (42.0-54.0) L 08/18/24 05:45 MCV 101.1 fL (80.0-100.0) H 08/18/24 05:45 MCH 35.0 pg (27.0-34.0) H 08/18/24 05:45 MCHC 34.6 g/dL (33.0-35.0) 08/18/24 05:45 RDW 14.2 % (11.6-16.5) 08/18/24 05:45 Plt Count 240 X10^3/uL (150.0-450.0) 08/18/24 05:45 MPV 7.9 fL (7.4-11.0) 08/18/24 05:45 Neut % (Auto) 65.9 % (42.0-75.0) 08/18/24 05:45 Lymph % (Auto) 21.7 % (21.0-51.0) 08/18/24 05:45 [place] % (Auto) 6.6 % (0.0-13.0) 08/18/24 05:45 Eos % (Auto) 4.6 % (0.9-2.9) H 08/18/24 05:45 Baso % (Auto) 1.2 % (0.2-1.0) H 08/18/24 05:45 Neut # (Auto) 6.3 x10^3/uL (2.2-4.8) H 08/18/24 05:45 Lymph # (Auto) 2.1 X10^3/uL (1.3-2.9) 08/18/24 05:45 [place] # (Auto) 0.6 x10^3/uL (0.3-0.8) 08/18/24 05:45 Eos # (Auto) 0.4 x10^3/uL (0.0-0.2) H 08/18/24 05:45 Baso # (Auto) 0.1 X10^3/uL (0.0-0.1) 08/18/24 05:45 Absolute Nucleated RBC 0.0 /100WBC 08/18/24 05:45 Sodium 143 mmol/L (136-145) 08/18/24 05:45 Corrected Sodium TNP 08/18/24 05:45 Potassium 3.9 mmol/L (3.5-5.1) 08/18/24 05:45 Chloride 108 mmol/L (98-107) H 08/18/24 05:45 Carbon Dioxide 26.2 mmol/L (21-32) 08/18/24 05:45 BUN 17 mg/dL (7-18) 08/18/24 05:45 Creatinine 0.89 mg/dL (0.70-1.30) 08/18/24 05:45 Est GFR (MDRD) Af Amer > 60 (>60) 08/18/24 05:45 Est GFR (MDRD) Non-Af > 60 (>60) 08/18/24 05:45 Glucose 98 mg/dL (65-99) 08/18/24 05:45 POC Glucose (mg/dL) 115 mg/dL (65-99) H 08/16/24 05:26 Calcium 8.3 mg/dL (8.5-10.1) L 08/18/24 05:45 Corrected Calcium 9.1 mg/dL (8.5-10.1) 08/18/24 05:45 Magnesium 2.1 mg/dL (2.0-2.9) 08/18/24 05:45 Total Bilirubin 0.50 mg/dL (0.2-1.0) 08/18/24 05:45 AST 20 Units/L (15-37) 08/18/24 05:45 ALT 34 Units/L (12-78) 08/18/24 05:45 Alkaline Phosphatase 107 Units/L (46-116) 08/18/24 05:45 Total Protein 6.7 g/dL (6.4-8.2) 08/18/24 05:45 Albumin 3.0 g/dL (3.4-5.0) L 08/18/24 05:45 Globulin 3.7 g/dL (2.5-4.5) 08/18/24 05:45 Albumin/Globulin Ratio 0.8 Ratio (1.1-2.1) L 08/18/24 05:45 Vitamin B12 432 pg/mL (193-986) 08/16/24 05:28 Folate 6.3 ng/mL (>8.6) L 08/16/24 05:28 Specimen Type Clean catch urine 08/15/24 23:39 Urine Color Yellow (YELLOW) 08/15/24 23:39 Urine Appearance Clear (CLEAR) 08/15/24 23:39 Urine pH 6.0 (5.0 - 8.0) 08/15/24 23:39 Ur Specific [place] 1.025 (1.000-1.030) 08/15/24 23:39 Urine Protein 1+ (NEGATIVE) 08/15/24 23:39 Urine Glucose (UA) Negative (NEGATIVE) 08/15/24 23:39 Urine Ketones Negative (NEGATIVE) 08/15/24 23:39 Urine Blood Negative (NEGATIVE) 08/15/24 23:39 Urine Nitrite Negative (NEGATIVE) 08/15/24 23:39 Urine Bilirubin Negative (NEGATIVE) 08/15/24 23:39 Urine Urobilinogen Normal (NORMAL) 08/15/24 23:39 Ur Leukocyte Esterase Negative (NEGATIVE) 08/15/24 23:39 Urine RBC 3-5 /HPF (0-3) A 08/15/24 23:39 Urine WBC 0-2 /HPF (0-5) 08/15/24 23:39 Ur Squamous Epith Cells Few /HPF (NEGATIVE) 08/15/24 23:39 Amorphous Sediment 1+ /HPF (NEGATIVE) 08/15/24 23:39 Urine Bacteria Trace /HPF (NEGATIVE) 08/15/24 23:39 Urine Mucus Moderate /HPF (NEGATIVE) 08/15/24 23:39 Ur Culture Indicated? No/not indicated 08/15/24 23:39 Ethyl Alcohol mg/dL < 3 mg/dL (0-19.9) 08/16/24 10:12 Assessment and Plan 1: Frequent falls. Patient is more alert and oriented today. 2: Tremors and restlessness which could be related to alcohol abuse. On IV fluid with added vitamins and moderate sedation, Dr. Magallon is addressing these issues. 3: Multiple lacerations on the left arm and forearm. for debridement in am . Problem Patient Problems: Patient Problems Laceration of elbow, left (Acute) S51.012A T12 compression fracture (Acute) S22.080A
[2024-08-18] MEDS: DESYREL PO SCH (20:11)
[2024-08-19] MEDS: HIBICLENS WASH EXT ONE (01:12)
[2024-08-19] MEDS: MOTRIN TAB 800 MG PO PRN (05:03)
[2024-08-19 05:40] LABS: BASOPHILS # (AUTO) 0.1 X10^3/uL (0.0-0.1); BASOPHILS % (AUTO) 1.4 % (0.2-1.0); EOSINOPHILS # (AUTO) 0.4 x10^3/uL (0.0-0.2); EOSINOPHILS % (AUTO) 4.9 % (0.9-2.9); HEMATOCRIT 36.3 % (42.0-54.0); HEMOGLOBIN 12.3 g/dL (13.5-18.0); LYMPHOCYTES # (AUTO) 2.1 X10^3/uL (1.3-2.9); LYMPHOCYTES % (AUTO) 26.7 % (21.0-51.0); MEAN CORPUSCULAR HEMOGLOBIN 34.6 pg (27.0-34.0); MEAN CORPUSCULAR HGB CONC 33.9 g/dL (33.0-35.0); MEAN PLATELET VOLUME 7.8 fL (7.4-11.0); MONOCYTES # (AUTO) 0.6 x10^3/uL (0.3-0.8); MONOCYTES % (AUTO) 7.6 % (0.0-13.0); NEUTROPHILS # (AUTO) 4.6 x10^3/uL (2.2-4.8); NEUTROPHILS % (AUTO) 59.4 % (42.0-75.0); PLATELET COUNT 219 X10^3/uL (150.0-450.0); RED BLOOD COUNT 3.56 X10^6/uL (4.7-6.0); RED CELL DISTRIBUTION WIDTH 14.2 % (11.6-16.5); WHITE BLOOD COUNT 7.8 X10^3/uL (3.6-10.0)
[2024-08-19 05:55] LABS: ALANINE AMINOTRANSFERASE 26 Units/L (12-78); ALBUMIN 2.8 g/dL (3.4-5.0); ALKALINE PHOSPHATASE 99 Units/L (46-116); ASPARTATE AMINO TRANSFERASE 16 Units/L (15-37); BLOOD UREA NITROGEN 18 mg/dL (7-18); CALCIUM 8.4 mg/dL (8.5-10.1); CARBON DIOXIDE 27.3 mmol/L (21-32); CHLORIDE 111 mmol/L (98-107); COR CA(FOR HYPOALB) 9.4 mg/dL (8.5-10.1); GLUCOSE 101 mg/dL (65-99); POTASSIUM 3.7 mmol/L (3.5-5.1); SODIUM 146 mmol/L (136-145); TOTAL PROTEIN 6.2 g/dL (6.4-8.2); eGFR NON BLACK RACES > 60 (>60)
[2024-08-19] MEDS ORDERED: CONSULT PHARMACY - POTASSIUM & MAGNESIUM XX SCH (07:00)
--- NOTE | 2024-08-19 07:30 | VAS ---
EXAMINATION:CAROTID USHISTORY:dizziness; .COMPARISON STUDY:None.TECHNIQUE:Lyle scale imaging, pulsed wave doppler and color doppler imaging of the bilateral carotid arteries was performed.FINDINGS:PSV (cm/sec) PDV (cm/sec)RCCA 106RICA 209RECA 124ICA/CCA Ratio: 3.3Vertebral Artery: Antegrade flowLCCA 104LICA 106LECA 65ICA/CCA Ratio: 1.0Vertebral Artery: Antegrade flowIMPRESSION:Scattered arterial vascular plaque. Elevated arterial velocity in the right internal carotid artery suggestive of severe 70-90% arterial stenosis. Duplex Doppler arterial tracings of the internal carotid arteries demonstrates spectral broadening/turbulent blood flow. There are resistive arterial waveforms within the vertebral arteries. Recommend further evaluation with CTA of the neck.Measurements were made utilizing the Society of Radiologists in Ultrasound consensus criteria, extrapolating data obtained from angiography measurements made by the NASCET method as a reference standard.THIS IS AN ELECTRONICALLY VERIFIED FINAL [id number] 7:27 AM - Electronically signed by Christiane Guerrero MD
[2024-08-19] MEDS: LR 1,000 ML IV 1,000 ML IV ONE (08:43)
[2024-08-19] MEDS: ASPIRIN 81 MG CHEWTAB PO SCH (08:43)
[2024-08-19] MEDS: NS 100 ML IV 100 ML ONE (08:55)
[2024-08-19] MEDS: ANCEF VIAL 1 GRAM ONE (08:55)
[2024-08-19] MEDS ORDERED: K-RIDER 10 MEQ/100 ML WATER 10 MEQ/100 ML BAG IV SCH (09:00)
[2024-08-19] MEDS ORDERED: PHENOBARBITAL TAB 15 MG (16.2MG) PO SCH (09:00)
[2024-08-19] MEDS ORDERED: MAGNESIUM SULFATE 1 GRAM/100 mL PREMIX 1 G/100 ML BAG IV SCH (09:00)
[2024-08-19] MEDS: PEPCID 20 MG VIAL ONE (09:13)
[2024-08-19] MEDS: XYLOCAINE 2 % (PLAIN) ONE (09:13)
[2024-08-19] MEDS: OFIRMEV IV 1000 MG VIAL 1,000 MG/100 ML VIAL IV ONE (09:13)
[2024-08-19] MEDS: ZOFRAN INJ 4 MG VIAL ONE (09:13)
[2024-08-19] MEDS: FENTANYL VIAL INJ 100 mcg ONE (09:13)
[2024-08-19] MEDS: VERSED ONE (09:13)
[2024-08-19] MEDS: REGLAN INJ 10 MG VIAL ONE (09:13)
[2024-08-19] MEDS: DIPRIVAN VIAL 20 ML ONE (09:13)
[2024-08-19] MEDS: BETADINE SOLN ONE (09:20)
[2024-08-19] MEDS: POLYMYXIN B SULFATE ONE (09:25)
[2024-08-19] MEDS: XYLOCAINE 1% and EPINEPHRINE 1:100,000 ONE (09:25)
[2024-08-19] MEDS: K-DUR TAB 20 MEQ PO SCH (10:03)
[2024-08-19] MEDS: MAGNESIUM SULFATE 1 GRAM/100 mL PREMIX 1 G/100 ML BAG IV SCH (10:04)
[2024-08-19] MEDS: HYDROGEN PEROXIDE 3% ONE (10:15)
[2024-08-19] MEDS ORDERED: TENORMIN PO SCH (11:00)
[2024-08-19] MEDS: MICARDIS PO SCH (12:59)
[2024-08-19] MEDS: PEPCID TAB 20 MG PO SCH (13:12)
[2024-08-20 05:58] LABS: BASOPHILS % (AUTO) 0.5 % (0.2-1.0); EOSINOPHILS # (AUTO) 0.4 x10^3/uL (0.0-0.2); EOSINOPHILS % (AUTO) 6.8 % (0.9-2.9); HEMATOCRIT 31.4 % (42.0-54.0); HEMOGLOBIN 10.8 g/dL (13.5-18.0); LYMPHOCYTES # (AUTO) 1.7 X10^3/uL (1.3-2.9); LYMPHOCYTES % (AUTO) 27.4 % (21.0-51.0); MEAN CORPUSCULAR HEMOGLOBIN 35.1 pg (27.0-34.0); MEAN CORPUSCULAR HGB CONC 34.3 g/dL (33.0-35.0); MEAN CORPUSCULAR VOLUME 102.4 fL (80.0-100.0); MEAN PLATELET VOLUME 8.1 fL (7.4-11.0); MONOCYTES # (AUTO) 0.5 x10^3/uL (0.3-0.8); MONOCYTES % (AUTO) 7.9 % (0.0-13.0); NEUTROPHILS # (AUTO) 3.6 x10^3/uL (2.2-4.8); NEUTROPHILS % (AUTO) 57.4 % (42.0-75.0); PLATELET COUNT 194 X10^3/uL (150.0-450.0); RED BLOOD COUNT 3.07 X10^6/uL (4.7-6.0); RED CELL DISTRIBUTION WIDTH 14.4 % (11.6-16.5); WHITE BLOOD COUNT 6.2 X10^3/uL (3.6-10.0)
[2024-08-20 06:15] LABS: ALANINE AMINOTRANSFERASE 14 Units/L (12-78); ALBUMIN 2.4 g/dL (3.4-5.0); ALKALINE PHOSPHATASE 94 Units/L (46-116); ASPARTATE AMINO TRANSFERASE 12 Units/L (15-37); BLOOD UREA NITROGEN 21 mg/dL (7-18); CALCIUM 8.1 mg/dL (8.5-10.1); CARBON DIOXIDE 26.7 mmol/L (21-32); CHLORIDE 110 mmol/L (98-107); COR CA(FOR HYPOALB) 9.4 mg/dL (8.5-10.1); CREATININE 1.11 mg/dL (0.70-1.30); GLUCOSE 109 mg/dL (65-99); MAGNESIUM 2.1 mg/dL (2.0-2.9); POTASSIUM 4.1 mmol/L (3.5-5.1); SODIUM 145 mmol/L (136-145); TOTAL PROTEIN 5.6 g/dL (6.4-8.2); eGFR NON BLACK RACES > 60 (>60)
--- NOTE | 2024-08-20 07:15 | CT ---
EXAMINATION: CAROTID CTA HISTORY: CVA, ABN CAROTID DOPPLER; COMPARISON: None. TECHNIQUE: Contiguous axial CT images of the neck following intravenous contrast for a CTA. Images are reviewed in the axial imaging plane with post processing thick slab MIP/3D volume images at a workstation. I mages are analyzed using NASCET criteria.The above CT scan was done with automated exposure control a nd the mA and kV was adjusted to obtain quality images according to patient size. FINDINGS: There is opacification of the common carotid, internal and external carotid, and vertebral arteries b ilaterally. Calcified arterial vascular plaque right carotid bifurcation, proximal internal carotid artery. Shor t segment of severe greater than 90% arterial stenosis right proximal internal carotid artery. Calcified arterial vascular plaque left carotid bifurcation and proximal internal carotid artery with out significant arterial stenosis. The vertebral arteries are codominant. Moderate cervical spondylosis. IMPRESSION: Short segment of severe arterial stenosis right proximal internal carotid artery. THIS IS AN ELECTRONICALLY VERIFIED FINAL REPORT 08/20/2024 7:11 AM - Electronically signed by Christiane Guerrero MD
[2024-08-20] MEDS: FOLIC ACID TAB 1 MG PO SCH (08:26)
--- NOTE | 2024-08-20 08:31 | DR.PROGNOT ---
HOSPITAL PROGRESS NOTE Progress Note for Day of: Progress Note Date: 08/20/24 Chief Complaint Chief Complaint: Patient is stable , alert , moderate pain Lt arm no abdominal pain today, no vomiting, tolerating diet well . White count 9.5 . hemoglobin 12.5, BUN/creatinine are normal, magnesium slightly low 1.8, liver function tests were normal. Afebrile and stable vital signs, Abdomen is soft with diffuse tenderness, bowel sounds present. Left arm wounds no changes. Has good distal pulses with intact sensation. Past Medical Family Social History Allergies: Allergies lisinopril Allergy (Unknown, Verified 07/16/24 20:50) sulfamethoxazole [From Bactrim] Allergy (Unknown, Verified 07/16/24 20:50) Tetanus Vaccines and Toxoid Allergy (Unknown, Verified 07/16/24 20:50) trimethoprim [From Bactrim] Allergy (Unknown, Verified 07/16/24 20:50) Review Of Systems ROS: No change since H&P Vital Signs Vital Signs: Vital Signs Temperature 98.1 F Pulse Rate [Left Radial] 66 Respiratory Rate 18 Respiratory Rate 18 Respiratory Rate 18 Blood Pressure [Left Arm] 119/59 O2 Sat by Pulse Oximetry 94 Physical Exam Oriented: Normal (Alert oriented and cooperative.) Eyes: Normal Ear: Normal Nose: Normal Throat: Normal Respiratory: Normal Cardiovascular: Normal GI:Auscultation: Normal GI:Palpation: Normal Skin: Other (Deep laceration left arm and forearm, no actively bleeding, normal circulation and sensation distally.) Musculoskeletal: Arm (Patient has multiple lacerations on the left arm and forearm with avulsed skin, Xeroform dressing in place which will be left intact today) Mood Description: Calm Speech Pattern: Clear Laboratory and Diagnostics 08/20/24 05:16 08/20/24 05:16 Labs: 08/19/24 09:27 Arm - Left Wound Gram Stain - Final Laboratory WBC 6.2 X10^3/uL (3.6-10.0) 08/20/24 05:16 RBC 3.07 X10^6/uL (4.7-6.0) L 08/20/24 05:16 Hgb 10.8 g/dL (13.5-18.0) L 08/20/24 05:16 Hct 31.4 % (42.0-54.0) L 08/20/24 05:16 MCV 102.4 fL (80.0-100.0) H 08/20/24 05:16 MCH 35.1 pg (27.0-34.0) H 08/20/24 05:16 MCHC 34.3 g/dL (33.0-35.0) 08/20/24 05:16 RDW 14.4 % (11.6-16.5) 08/20/24 05:16 Plt Count 194 X10^3/uL (150.0-450.0) 08/20/24 05:16 MPV 8.1 fL (7.4-11.0) 08/20/24 05:16 Neut % (Auto) 57.4 % (42.0-75.0) 08/20/24 05:16 Lymph % (Auto) 27.4 % (21.0-51.0) 08/20/24 05:16 [place] % (Auto) 7.9 % (0.0-13.0) 08/20/24 05:16 Eos % (Auto) 6.8 % (0.9-2.9) H 08/20/24 05:16 Baso % (Auto) 0.5 % (0.2-1.0) 08/20/24 05:16 Neut # (Auto) 3.6 x10^3/uL (2.2-4.8) 08/20/24 05:16 Lymph # (Auto) 1.7 X10^3/uL (1.3-2.9) 08/20/24 05:16 [place] # (Auto) 0.5 x10^3/uL (0.3-0.8) 08/20/24 05:16 Eos # (Auto) 0.4 x10^3/uL (0.0-0.2) H 08/20/24 05:16 Baso # (Auto) 0.0 X10^3/uL (0.0-0.1) 08/20/24 05:16 Absolute Nucleated RBC 0.0 /100WBC 08/20/24 05:16 Sodium 145 mmol/L (136-145) 08/20/24 05:16 Corrected Sodium TNP 08/20/24 05:16 Potassium 4.1 mmol/L (3.5-5.1) 08/20/24 05:16 Chloride 110 mmol/L (98-107) H 08/20/24 05:16 Carbon Dioxide 26.7 mmol/L (21-32) 08/20/24 05:16 BUN 21 mg/dL (7-18) H 08/20/24 05:16 Creatinine 1.11 mg/dL (0.70-1.30) 08/20/24 05:16 Est GFR (MDRD) Af Amer > 60 (>60) 08/20/24 05:16 Est GFR (MDRD) Non-Af > 60 (>60) 08/20/24 05:16 Glucose 109 mg/dL (65-99) H 08/20/24 05:16 POC Glucose (mg/dL) 115 mg/dL (65-99) H 08/16/24 05:26 Calcium 8.1 mg/dL (8.5-10.1) L 08/20/24 05:16 Corrected Calcium 9.4 mg/dL (8.5-10.1) 08/20/24 05:16 Magnesium 2.1 mg/dL (2.0-2.9) 08/20/24 05:16 Total Bilirubin 0.20 mg/dL (0.2-1.0) 08/20/24 05:16 AST 12 Units/L (15-37) L 08/20/24 05:16 ALT 14 Units/L (12-78) 08/20/24 05:16 Alkaline Phosphatase 94 Units/L (46-116) 08/20/24 05:16 Total Protein 5.6 g/dL (6.4-8.2) L 08/20/24 05:16 Albumin 2.4 g/dL (3.4-5.0) L 08/20/24 05:16 Globulin 3.2 g/dL (2.5-4.5) 08/20/24 05:16 Albumin/Globulin Ratio 0.8 Ratio (1.1-2.1) L 08/20/24 05:16 Vitamin B12 432 pg/mL (193-986) 08/16/24 05:28 Folate 6.3 ng/mL (>8.6) L 08/16/24 05:28 Specimen Type Clean catch urine 08/15/24 23:39 Urine Color Yellow (YELLOW) 08/15/24 23:39 Urine Appearance Clear (CLEAR) 08/15/24 23:39 Urine pH 6.0 (5.0 - 8.0) 08/15/24 23:39 Ur Specific [place] 1.025 (1.000-1.030) 08/15/24 23:39 Urine Protein 1+ (NEGATIVE) 08/15/24 23:39 Urine Glucose (UA) Negative (NEGATIVE) 08/15/24 23:39 Urine Ketones Negative (NEGATIVE) 08/15/24 23:39 Urine Blood Negative (NEGATIVE) 08/15/24 23:39 Urine Nitrite Negative (NEGATIVE) 08/15/24 23:39 Urine Bilirubin Negative (NEGATIVE) 08/15/24 23:39 Urine Urobilinogen Normal (NORMAL) 08/15/24 23:39 Ur Leukocyte Esterase Negative (NEGATIVE) 08/15/24 23:39 Urine RBC 3-5 /HPF (0-3) A 08/15/24 23:39 Urine WBC 0-2 /HPF (0-5) 08/15/24 23:39 Ur Squamous Epith Cells Few /HPF (NEGATIVE) 08/15/24 23:39 Amorphous Sediment 1+ /HPF (NEGATIVE) 08/15/24 23:39 Urine Bacteria Trace /HPF (NEGATIVE) 08/15/24 23:39 Urine Mucus Moderate /HPF (NEGATIVE) 08/15/24 23:39 Ur Culture Indicated? No/not indicated 08/15/24 23:39 Ethyl Alcohol mg/dL < 3 mg/dL (0-19.9) 08/16/24 10:12 Assessment and Plan 1: Frequent falls. Patient is more alert and oriented today. 2: no more tremor . 3: Multiple lacerations on the left arm and forearm.s/p debridement . for d/c in am with VN to change the dressing every 3 days . Problem Patient Problems: Patient Problems Laceration of elbow, left (Acute) S51.012A T12 compression fracture (Acute) S22.080A
[2024-08-20 16:11] VITALS: O2SAT 95
[2024-08-21 05:42] LABS: BASOPHILS # (AUTO) 0.1 X10^3/uL (0.0-0.1); BASOPHILS % (AUTO) 1.3 % (0.2-1.0); EOSINOPHILS # (AUTO) 0.4 x10^3/uL (0.0-0.2); EOSINOPHILS % (AUTO) 5.9 % (0.9-2.9); HEMOGLOBIN 10.9 g/dL (13.5-18.0); LYMPHOCYTES # (AUTO) 1.3 X10^3/uL (1.3-2.9); LYMPHOCYTES % (AUTO) 21.4 % (21.0-51.0); MEAN CORPUSCULAR HEMOGLOBIN 35.1 pg (27.0-34.0); MEAN CORPUSCULAR HGB CONC 34.2 g/dL (33.0-35.0); MEAN CORPUSCULAR VOLUME 102.6 fL (80.0-100.0); MEAN PLATELET VOLUME 7.8 fL (7.4-11.0); MONOCYTES # (AUTO) 0.4 x10^3/uL (0.3-0.8); MONOCYTES % (AUTO) 6.7 % (0.0-13.0); NEUTROPHILS # (AUTO) 4.1 x10^3/uL (2.2-4.8); NEUTROPHILS % (AUTO) 64.7 % (42.0-75.0); PLATELET COUNT 204 X10^3/uL (150.0-450.0); RED BLOOD COUNT 3.12 X10^6/uL (4.7-6.0); RED CELL DISTRIBUTION WIDTH 14.2 % (11.6-16.5); WHITE BLOOD COUNT 6.3 X10^3/uL (3.6-10.0)
[2024-08-21 06:05] LABS: ALANINE AMINOTRANSFERASE 15 Units/L (12-78); ALBUMIN 2.4 g/dL (3.4-5.0); ALKALINE PHOSPHATASE 99 Units/L (46-116); ASPARTATE AMINO TRANSFERASE 15 Units/L (15-37); BLOOD UREA NITROGEN 17 mg/dL (7-18); CALCIUM 8.1 mg/dL (8.5-10.1); CARBON DIOXIDE 26.2 mmol/L (21-32); CHLORIDE 111 mmol/L (98-107); COR CA(FOR HYPOALB) 9.4 mg/dL (8.5-10.1); COR NA(FOR HYPERGLY) 143 mmol/L (136-145); CREATININE 0.93 mg/dL (0.70-1.30); GLUCOSE 117 mg/dL (65-99); SODIUM 143 mmol/L (136-145); TOTAL PROTEIN 5.6 g/dL (6.4-8.2); eGFR NON BLACK RACES > 60 (>60)
[2024-08-21 10:26] VITALS: BP 187/91; PULSE 73; RESP 19; TEMP 97.8
== END 2024-08-21 12:05 | disposition home health service (06) | DRG 571 ==
LOC: ER 16:13 → MED/SURG 16:13 → OBSVTOIN 08-16 08:00 → INTOOBSV 08-16 08:00
PROVIDERS: ADMIT Surgery; ATTEND Surgery
DX: S22.32XA Fracture of one rib, left side, initial encounter for closed fracture; R29.6 Repeated falls; B96.5 Pseudomonas (aeruginosa) (mallei) (pseudomallei) as the cause of diseases classified elsewhere; F10.90 Alcohol use, unspecified, uncomplicated; R94.31 Abnormal electrocardiogram [ECG] [EKG]; Z72.0 Tobacco use; E83.42 Hypomagnesemia; B96.89 Other specified bacterial agents as the cause of diseases classified elsewhere; Z16.19 Resistance to other specified beta lactam antibiotics; W06.XXXA Fall from bed, initial encounter; R26.89 Other abnormalities of gait and mobility; R25.1 Tremor, unspecified; S51.812A Laceration without foreign body of left forearm, initial encounter; S42.212A Unspecified displaced fracture of surgical neck of left humerus, initial encounter for closed fracture; W22.8XXA Striking against or struck by other objects, initial encounter; S41.112A Laceration without foreign body of left upper arm, initial encounter; R41.82 Altered mental status, unspecified; R42 Dizziness and giddiness; Y92.009 Unspecified place in unspecified non-institutional (private) residence as the place of occurrence of the external cause; I10 Essential (primary) hypertension

== ENCOUNTER 2025-01-06 13:50 | Observation (INO) ==
--- NOTE | 2025-01-06 14:09 | DR.SOBA ---
HPI Time Seen Time Seen by Provider: 01/06/25 14:09 Primary Care Physician Primary Care Physician: Kaylan HPI Comment HPI Comment: 74-year-old male smoker with COPD sent in from his PCPs office due to progressive shortness of breath. He been having fever and flu symptoms for the past week. COVID-19 Coronavirus symptoms experienced: Coughing and Shortness of Breath PMH PMH Past Medical History: Hypertension Past Surgical History: Yes Surgical History: Cholecystectomy and Ortho Surgery Family History Family Medical History: Diabetes Mellitus Social History Do you use any recreational Drugs:: No PE Vital Signs Vitals: Vital Signs Temperature 98.4 F Pulse Rate 101 Pulse Rate 64 Pulse Rate 63 Pulse Rate 69 Pulse Rate 63 Pulse Rate 62 Pulse Rate 65 Pulse Rate 65 Pulse Rate 106 Pulse Rate 61 Pulse Rate 65 Pulse Rate 65 Pulse Rate 66 Pulse Rate 69 Respiratory Rate 32 Respiratory Rate 28 Respiratory Rate 41 Respiratory Rate 28 Respiratory Rate 30 Respiratory Rate 35 Respiratory Rate 44 Respiratory Rate 38 Respiratory Rate 45 Respiratory Rate 24 Respiratory Rate 39 Respiratory Rate 37 Blood Pressure 180/75 Blood Pressure 176/88 Blood Pressure 189/83 Blood Pressure 178/80 Blood Pressure 178/80 Blood Pressure 189/77 O2 Sat by Pulse Oximetry 96 O2 Sat by Pulse Oximetry 98 O2 Sat by Pulse Oximetry 97 O2 Sat by Pulse Oximetry 97 O2 Sat by Pulse Oximetry 92 O2 Sat by Pulse Oximetry 97 O2 Sat by Pulse Oximetry 95 O2 Sat by Pulse Oximetry 91 O2 Sat by Pulse Oximetry 97 O2 Sat by Pulse Oximetry 95 COURSE Treatment Treatment: Patient was given DuoNeb treatment for COPD. Was also given IV furosemide and Nitropaste for his elevated blood pressure and presumed CHF. D- dimer was positive, proceeded with CT of the chest. Patient had been given nebulization treatments for COPD and after the CTA was negative for PE and pneumonia, he was given Solu-Medrol 125 mg IVP patient's blood pressures improved but will need to be admitted for COPD exacerbation, dyspnea and poorly controlled hypertension. Reevaluation 1st: Unchanged 2nd: Improved Consultation Called: 17:19 Consultation Comments: Discussed with the hospitalist ROR Labs Reviewed Laboratory Results Reviewed?: Yes 01/06/25 14:40 01/06/25 14:40 Laboratory: WBC 7.2 X10^3/uL (3.6-10.0) 01/06/25 14:40 RBC 4.22 X10^6/uL (4.7-6.0) L 01/06/25 14:40 Hgb 14.1 g/dL (13.5-18.0) 01/06/25 14:40 Hct 41.7 % (42.0-54.0) L 01/06/25 14:40 MCV 98.9 fL (80.0-100.0) 01/06/25 14:40 MCH 33.5 pg (27.0-34.0) 01/06/25 14:40 MCHC 33.9 g/dL (33.0-35.0) 01/06/25 14:40 RDW 14.0 % (11.6-16.5) 01/06/25 14:40 Plt Count 182 X10^3/uL (150.0-450.0) 01/06/25 14:40 MPV 7.9 fL (7.4-11.0) 01/06/25 14:40 Neut % (Auto) 82.4 % (42.0-75.0) H 01/06/25 14:40 Lymph % (Auto) 6.9 % (21.0-51.0) L 01/06/25 14:40 Jenkins % (Auto) 8.2 % (0.0-13.0) 01/06/25 14:40 Eos % (Auto) 1.7 % (0.9-2.9) 01/06/25 14:40 Baso % (Auto) 0.8 % (0.2-1.0) 01/06/25 14:40 Neut # (Auto) 5.9 x10^3/uL (2.2-4.8) H 01/06/25 14:40 Lymph # (Auto) 0.5 X10^3/uL (1.3-2.9) L 01/06/25 14:40 Jenkins # (Auto) 0.6 x10^3/uL (0.3-0.8) 01/06/25 14:40 Eos # (Auto) 0.1 x10^3/uL (0.0-0.2) 01/06/25 14:40 Baso # (Auto) 0.1 X10^3/uL (0.0-0.1) 01/06/25 14:40 Absolute Nucleated RBC 0.1 /100WBC 01/06/25 14:40 PT 14.6 SECONDS (11.8-14.3) 01/06/25 14:40 INR Target Range - 01/06/25 14:40 INR 1.16 (0.8-1.3) 01/06/25 14:40 APTT 28.9 SECONDS (22.9-36.5) 01/06/25 14:40 PTT Comment - 01/06/25 14:40 D-Dimer 1.60 ug/ml (0.0-0.57) H 01/06/25 14:40 Sample Site Lra 01/06/25 14:25 ABG pH 7.440 (7.35-7.45) 01/06/25 14:25 ABG pCO2 44.0 mmHg (35.0-45.0) 01/06/25 14:25 ABG pO2 69.0 mmHg (80.0-100.0) L 01/06/25 14:25 ABG HCO3 29.9 mmol/L (22-26) H 01/06/25 14:25 ABG O2 Saturation 94.0 % (90-100) 01/06/25 14:25 ABG Base Excess 5.1 mmol/L (-2.0-2.0) H 01/06/25 14:25 Richard Test Pos 01/06/25 14:25 A-a Gradient 26.0 mmHg 01/06/25 14:25 FiO2 21.0 01/06/25 14:25 Blood Gas Comments Pt nikia well eb 01/06/25 14:25 Sodium 140 mmol/L (136-145) 01/06/25 14:40 Corrected Sodium TNP 01/06/25 14:40 Potassium 4.6 mmol/L (3.5-5.1) 01/06/25 14:40 Chloride 104 mmol/L (98-107) 01/06/25 14:40 Carbon Dioxide 28.6 mmol/L (21-32) 01/06/25 14:40 BUN 10 mg/dL (7-18) 01/06/25 14:40 Creatinine 0.84 mg/dL (0.70-1.30) 01/06/25 14:40 Est GFR (MDRD) Af Amer > 60 (>60) 01/06/25 14:40 Est GFR (MDRD) Non-Af > 60 (>60) 01/06/25 14:40 Glucose 96 mg/dL (65-99) 01/06/25 14:40 Lactic Acid 0.6 mmol/L (0.4-2.0) 01/06/25 14:47 Calcium 8.7 mg/dL (8.5-10.1) 01/06/25 14:40 Corrected Calcium 9.3 mg/dL (8.5-10.1) 01/06/25 14:40 Magnesium 1.9 mg/dL (2.0-2.9) L 01/06/25 14:40 Total Bilirubin 0.40 mg/dL (0.2-1.0) 01/06/25 14:40 AST 19 Units/L (15-37) 01/06/25 14:40 ALT 21 Units/L (12-78) 01/06/25 14:40 Alkaline Phosphatase 70 Units/L (46-116) 01/06/25 14:40 Creatine Kinase 267 Units/L (39-308) 01/06/25 14:40 Troponin I High Sens 24.8 ng/L (4.0-60.0) 01/06/25 14:40 B-Natriuretic Peptide 523 pg/mL (0-79) H 01/06/25 14:40 Total Protein 7.2 g/dL (6.4-8.2) 01/06/25 14:40 Albumin 3.2 g/dL (3.4-5.0) L 01/06/25 14:40 Globulin 4.0 g/dL (2.5-4.5) 01/06/25 14:40 Albumin/Globulin Ratio 0.8 Ratio (1.1-2.1) L 01/06/25 14:40 Specimen Type Catherized urine 01/06/25 16:30 Urine Color Pale yellow (YELLOW) 01/06/25 16:30 Urine Appearance Clear (CLEAR) 01/06/25 16:30 Urine pH 6.0 (5.0 - 8.0) 01/06/25 16:30 Ur Specific [place] 1.015 (1.000-1.030) 01/06/25 16:30 Urine Protein Negative (NEGATIVE) 01/06/25 16:30 Urine Glucose (UA) Negative (NEGATIVE) 01/06/25 16:30 Urine Ketones Negative (NEGATIVE) 01/06/25 16:30 Urine Blood Negative (NEGATIVE) 01/06/25 16:30 Urine Nitrite Negative (NEGATIVE) 01/06/25 16:30 Urine Bilirubin Negative (NEGATIVE) 01/06/25 16:30 Urine Urobilinogen Normal (NORMAL) 01/06/25 16:30 Ur Leukocyte Esterase Negative (NEGATIVE) 01/06/25 16:30 SARS-CoV-2 (PCR) Negative (NEGATIVE) 01/06/25 14:20 Influenza Type A (PCR) Negative (NEGATIVE) 01/06/25 14:20 Influenza Type B (PCR) Negative (NEGATIVE) 01/06/25 14:20 RSV (PCR) Negative (NEGATIVE) 01/06/25 14:20 Other Results Comments: Swabs for flu and COVID were negative. XRAY X-ray Results: Portable chest x-ray showed increased opacities in the right lung field, no effusion, no pneumothorax, possible right pneumonia. CTA had been ordered. EKG Rate: 66 Rhythm: NSR ST: Infarct (Old septal infarct with Q waves and V1-V3 , poor R wave progression) Opioid Opioid Risk Tool Age (Henry box if 16-45): No History of Preadolescent Sexual Abuse: No Total: 0 Total Score Risk Category: Low Risk Copyright: Silviano ALDRIDGE predicting aberrant behaviors Discharge Plan Diagnosis Discharge Problem: Acute exacerbation of chronic obstructive pulmonary disease (COPD), Poorly- controlled hypertension Discharge Plan Patient Disposition: ADMITTED INPATIENT Condition: Stable Prescription drug monitoring program results: PDMP reviewed and no concerns identified
--- NOTE | 2025-01-06 14:10 | EKG ---
Test Reason : short of breath, hypertensive Blood Pressure : */* mmHG Vent. Rate : 66 BPM Atrial Rate : 66 BPM P-R Int : 196 ms QRS Dur : 88 ms QT Int : 404 ms P-R-T Axes : 32 -3 39 degrees QTc Int : 423 ms Normal sinus rhythm Septal infarct (cited on or before 17-AUG-2024) Abnormal ECG When compared with ECG of 17-AUG-2024 03:48, premature ventricular complexes are no longer present premature atrial complexes are no longer present Confirmed by Addison Day MD ([id number]) on 01/07/2025 7:21:26 AM Referred By: Confirmed By: Addison Day MD
[2025-01-06 14:29] LABS: ABG ALLEN TEST POS; ABG BASE EXCESS 5.1 mmol/L (-2.0-2.0); ABG HCO3 29.9 mmol/L (22-26)
[2025-01-06] MEDS: LASIX IVP ONE ×3 (14:38→21:11)
[2025-01-06] MEDS: NITRO-BID OINT 2% UD (E.R. USE ONLY) TD ONE (14:39)
--- NOTE | 2025-01-06 14:42 | RAD ---
EXAM: CHEST, 1 VIEW HISTORY: Shortness of Breath; COMPARISON: Prior study or studies were utilized for comparison during interpretation with the most relevant jie ed 08/15/2024 TECHNIQUE: CHEST, 1 VIEW FINDINGS: Chest: Lines and tubes: None Mediastinum: Cardiac and mediastinal shadow is within normal limits for size and contour. Pulmonary vessels: No pulmonary vascular congestion. Lung dennis: Increased opacities seen in the right lung field Pleura: No effusion. No pneumothorax. Bones and soft tissues: No acute osseous or soft tissue abnormality. IMPRESSION: 1. Possible right pneumonia THIS IS AN ELECTRONICALLY VERIFIED FINAL REPORT 01/06/2025 2:39 PM - Electronically signed by Serg Villagomez MD
[2025-01-06] MEDS: DUONEB 0.5 MG/3 MG (3 mL) NEB ONE ×4 (14:43→17:22)
[2025-01-06 14:53] LABS: BASOPHILS # (AUTO) 0.1 X10^3/uL (0.0-0.1); BASOPHILS % (AUTO) 0.8 % (0.2-1.0); EOSINOPHILS # (AUTO) 0.1 x10^3/uL (0.0-0.2); EOSINOPHILS % (AUTO) 1.7 % (0.9-2.9); HEMATOCRIT 41.7 % (42.0-54.0); HEMOGLOBIN 14.1 g/dL (13.5-18.0); LYMPHOCYTES # (AUTO) 0.5 X10^3/uL (1.3-2.9); LYMPHOCYTES % (AUTO) 6.9 % (21.0-51.0); MEAN CORPUSCULAR HEMOGLOBIN 33.5 pg (27.0-34.0); MEAN CORPUSCULAR HGB CONC 33.9 g/dL (33.0-35.0); MEAN CORPUSCULAR VOLUME 98.9 fL (80.0-100.0); MEAN PLATELET VOLUME 7.9 fL (7.4-11.0); MONOCYTES # (AUTO) 0.6 x10^3/uL (0.3-0.8); MONOCYTES % (AUTO) 8.2 % (0.0-13.0); NEUTROPHILS # (AUTO) 5.9 x10^3/uL (2.2-4.8); NEUTROPHILS % (AUTO) 82.4 % (42.0-75.0); PLATELET COUNT 182 X10^3/uL (150.0-450.0); RED BLOOD COUNT 4.22 X10^6/uL (4.7-6.0); WHITE BLOOD COUNT 7.2 X10^3/uL (3.6-10.0)
[2025-01-06 15:04] LABS: INR 1.16 (0.8-1.3)
[2025-01-06 15:09] LABS: ALANINE AMINOTRANSFERASE 21 Units/L (12-78); ALBUMIN 3.2 g/dL (3.4-5.0); ALKALINE PHOSPHATASE 70 Units/L (46-116); ASPARTATE AMINO TRANSFERASE 19 Units/L (15-37); BLOOD UREA NITROGEN 10 mg/dL (7-18); CALCIUM 8.7 mg/dL (8.5-10.1); CARBON DIOXIDE 28.6 mmol/L (21-32); CHLORIDE 104 mmol/L (98-107); COR CA(FOR HYPOALB) 9.3 mg/dL (8.5-10.1); CREATINE KINASE 267 Units/L (39-308); CREATININE 0.84 mg/dL (0.70-1.30); GLUCOSE 96 mg/dL (65-99); MAGNESIUM 1.9 mg/dL (2.0-2.9); POTASSIUM 4.6 mmol/L (3.5-5.1); SODIUM 140 mmol/L (136-145); TOTAL PROTEIN 7.2 g/dL (6.4-8.2); eGFR NON BLACK RACES > 60 (>60)
[2025-01-06] MEDS: APRESOLINE INJ 20 MG VIAL IVP ONE (15:30)
[2025-01-06 16:56] LABS: BILIRUBIN,URINE NEGATIVE (NEGATIVE); BLOOD/HEMOGLOBIN,URINE NEGATIVE (NEGATIVE); GLUCOSE, URINE NEGATIVE (NEGATIVE); KETONES,URINE NEGATIVE (NEGATIVE); LEUKOCYTE ESTERASE ,URINE NEGATIVE (NEGATIVE); NITRITES,URINE NEGATIVE (NEGATIVE); PROTEIN,URINE NEGATIVE (NEGATIVE); UROBILINOGEN,URINE NORMAL (NORMAL)
[2025-01-06 16:57] LABS: APPEARANCE,URINE CLEAR (CLEAR); COLOR,URINE PALE YELLOW (YELLOW)
--- NOTE | 2025-01-06 16:57 | CT ---
EXAM:CT PULMONARY ANGIOGRAM CHEST WITH CONTRAST (PE PROTOCOL)HISTORY:elevated D-dimer, SOB, r/o PTE;COMPARISON:None.TECHNIQUE:Axial CT images were obtained through the chest after the intravenous administration of contrast. Coronal reformatted images were included. Maximum intensity projection (MIP) images were performed per pulmonary angiogram protocol.Informed written consent was obtained prior to contrast administration.All CT scans at this facility use dose modulation, iterative reconstruction, and/or weight based dosing when appropriate to reduce radiation dose to as low as reasonably achievable.FINDINGS:HEART AND PULMONARY ARTERIES: No evidence of right ventricular strain. No filling defects in the pulmonary arteries to suggest emboli.SUPPORT DEVICES: NoneLYMPH NODES: No pathologically enlarged nodes.LUNGS AND PLEURA: Lungs show no focal pneumonia.AIRWAYS: NormalUPPER ABDOMEN: NormalBONES: Multilevel degenerative changes in the thoracic spineIMPRESSION:No evidence of pulmonary embolism or other acute intrathoracic abnormalityTHIS IS AN ELECTRONICALLY VERIFIED FINAL REPORT01/06/2025 4:43 PM - Electronically signed by Liam Garcia MD
[2025-01-06] MEDS: SOLU-Medrol 125 MG VIAL IVP ONE (17:22)
[2025-01-06] MEDS ORDERED: NovoLIN R (or HumuLIN R) SUBCUT PRN (18:08)
[2025-01-06] MEDS: DUONEB 0.5 MG/3 MG (3 mL) NEB SCH (20:00)
[2025-01-06] MEDS: PULMICORT NEB TX 0.5 MG NEB SCH (20:00)
[2025-01-06] MEDS ORDERED: DUONEB 0.5 MG/3 MG (3 mL) NEB SCH (21:00)
[2025-01-06 21:11] VITALS: BMI 30.5
[2025-01-06] MEDS: OMNIPAQUE 350 mg/mL 100 mL BTL 100 ML ONE (21:11)
[2025-01-06] MEDS: SNACK - Diabetic Appropriate PO SCH (21:20)
[2025-01-06] MEDS: SOLU-Medrol 40 MG VIAL IVP SCH (21:21)
[2025-01-06] MEDS: SOLU-Medrol 125 MG VIAL ONE (22:21)
[2025-01-07 04:54] LABS: BASOPHILS % (AUTO) 0.6 % (0.2-1.0); HEMATOCRIT 43.7 % (42.0-54.0); HEMOGLOBIN 14.9 g/dL (13.5-18.0); LYMPHOCYTES # (AUTO) 0.3 X10^3/uL (1.3-2.9); LYMPHOCYTES % (AUTO) 5.1 % (21.0-51.0); MEAN CORPUSCULAR HEMOGLOBIN 33.5 pg (27.0-34.0); MEAN CORPUSCULAR HGB CONC 34.2 g/dL (33.0-35.0); MEAN PLATELET VOLUME 7.7 fL (7.4-11.0); MONOCYTES # (AUTO) 0.2 x10^3/uL (0.3-0.8); MONOCYTES % (AUTO) 3.7 % (0.0-13.0); NEUTROPHILS # (AUTO) 6.1 x10^3/uL (2.2-4.8); NEUTROPHILS % (AUTO) 90.6 % (42.0-75.0); PLATELET COUNT 214 X10^3/uL (150.0-450.0); RED BLOOD COUNT 4.46 X10^6/uL (4.7-6.0); RED CELL DISTRIBUTION WIDTH 14.1 % (11.6-16.5); WHITE BLOOD COUNT 6.7 X10^3/uL (3.6-10.0)
[2025-01-07 05:17] LABS: ALANINE AMINOTRANSFERASE 22 Units/L (12-78); ALBUMIN 3.2 g/dL (3.4-5.0); ALKALINE PHOSPHATASE 72 Units/L (46-116); ASPARTATE AMINO TRANSFERASE 17 Units/L (15-37); BLOOD UREA NITROGEN 16 mg/dL (7-18); CARBON DIOXIDE 32.1 mmol/L (21-32); CHLORIDE 101 mmol/L (98-107); COR CA(FOR HYPOALB) 9.6 mg/dL (8.5-10.1); COR NA(FOR HYPERGLY) 142 mmol/L (136-145); CREATININE 0.98 mg/dL (0.70-1.30); GLUCOSE 142 mg/dL (65-99); POTASSIUM 4.3 mmol/L (3.5-5.1); SODIUM 141 mmol/L (136-145); TOTAL PROTEIN 7.4 g/dL (6.4-8.2); eGFR NON BLACK RACES > 60 (>60)
[2025-01-07 05:38] LABS: ANISOCYTOSIS 1+; BAND NEUTROPHILS % 1 % (0-10); PLATELET MORPHOLOGY COMMENT NORMAL (NORMAL); STOMATOCYTES 1+; TEAR DROP CELLS SLIGHT
[2025-01-07] MEDS: CATAPRES TAB 0.1 MG PO ONE (07:34)
[2025-01-07] MEDS: TYLENOL 325 MG TAB PO PRN (07:40)
[2025-01-07] MEDS: TENORMIN PO SCH (08:34)
[2025-01-07] MEDS: LOVENOX INJ 40 MG SYR SC SCH (08:35)
[2025-01-07] MEDS: LASIX IVP SCH (08:35)
--- NOTE | 2025-01-07 10:14 | DR.H&P ---
H&P History & Physical for Day of: H&P Date: 01/07/25 Chief Complaint Chief Complaint: SOB History of Present Illness History of Present Illness: Mr. Johnson is a 74-year-old male with a past medical history of COPD, CAD, hypertension, hyperlipidemia, anxiety and GERD presented with worsening shortness of breath and cough. He was seen at PCP office yesterday and was advised to go to the ER for further evaluation. ER workup showed hypoxia on the ABG, elevated BNP negative troponin. Patient's chest x-ray was concerning for pneumonia. D-dimer was also elevated, CTA was done which did not show PE or pneumonia or effusion. His blood pressure was uncontrolled, SBP in the 180s. He was given hydralazine, clonidine and Lasix IV. He was started on IV steroids and admitted for further management. He is currently on 2 L oxygen. His blood pressure continues to stay elevated. He reports feeling better. He only takes atenolol for blood pressure at home. He reports having a history of CAD status post stenting over 10 years ago. He does see cardiology. Labs/imaging reviewed -WBC 6.7 hemoglobin 14.9 potassium 4.3 creatinine 0.98 BNP 523 D-dimer 1.60 -Chest x-ray and CTA reviewed -AIT pending Plan: Continue to monitor with telemetry, add azithromycin. Continue Solu- Medrol and bronchodilators. Continue IV Lasix 40 mg daily, strict I's and O's, daily weight. Will order echocardiogram. Resume home medications. Will add ELAINE or ARB to help with blood pressure control. Replace electrolytes as needed. Physical therapy as tolerated. Add nicotine patch. Monitor a.m. labs and imaging. Time spent for clinical assessment, reviewing labs/imaging, physical exam, decision making and documentation greater than 45 mins. Past Medical History Past Medical History: Hypertension Past Surgical History Surgical History: Cholecystectomy and Ortho Surgery Family History Family Medical History: Diabetes Mellitus Social History Have you used tobacco products in the last 12 months: Yes Type of Tobacco Use: Cigarettes Alcohol Use: Occasionally Drug Use: None Allergies Allergies Allergy/AdvReac Type Severity Reaction Status Date / Time lisinopril Allergy Unknown Verified 01/06/25 14:50 sulfamethoxazole Allergy Unknown Verified 01/06/25 14:50 [From Bactrim] Tetanus Vaccines and Toxoid Allergy Unknown Verified 01/06/25 14:50 trimethoprim [From Bactrim] Allergy Unknown Verified 01/06/25 14:50 Labs 01/07/25 04:05 01/07/25 04:05 Labs: Laboratory WBC 6.7 X10^3/uL (3.6-10.0) 01/07/25 04:05 RBC 4.46 X10^6/uL (4.7-6.0) L 01/07/25 04:05 Hgb 14.9 g/dL (13.5-18.0) 01/07/25 04:05 Hct 43.7 % (42.0-54.0) 01/07/25 04:05 MCV 98.0 fL (80.0-100.0) 01/07/25 04:05 MCH 33.5 pg (27.0-34.0) 01/07/25 04:05 MCHC 34.2 g/dL (33.0-35.0) 01/07/25 04:05 RDW 14.1 % (11.6-16.5) 01/07/25 04:05 Plt Count 214 X10^3/uL (150.0-450.0) 01/07/25 04:05 Plt Count Comment Adequate (ADEQUATE) 01/07/25 04:05 MPV 7.7 fL (7.4-11.0) 01/07/25 04:05 Neut % (Auto) 90.6 % (42.0-75.0) H 01/07/25 04:05 Lymph % (Auto) 5.1 % (21.0-51.0) L 01/07/25 04:05 [place] % (Auto) 3.7 % (0.0-13.0) 01/07/25 04:05 Eos % (Auto) 0.0 % (0.9-2.9) L 01/07/25 04:05 Baso % (Auto) 0.6 % (0.2-1.0) 01/07/25 04:05 Neut # (Auto) 6.1 x10^3/uL (2.2-4.8) H 01/07/25 04:05 Lymph # (Auto) 0.3 X10^3/uL (1.3-2.9) L 01/07/25 04:05 [place] # (Auto) 0.2 x10^3/uL (0.3-0.8) L 01/07/25 04:05 Eos # (Auto) 0.0 x10^3/uL (0.0-0.2) 01/07/25 04:05 Baso # (Auto) 0.0 X10^3/uL (0.0-0.1) 01/07/25 04:05 Absolute Nucleated RBC 0.1 /100WBC 01/07/25 04:05 Total Counted 100 01/07/25 04:05 Neutrophils % (Manual) 88 % (39-76) H 01/07/25 04:05 Band Neutrophils % 1 % (0-10) 01/07/25 04:05 Lymphocytes % (Manual) 8 % (13-43) L 01/07/25 04:05 Monocytes % (Manual) 3 % (4-9) L 01/07/25 04:05 Plt Morphology Comment Normal (NORMAL) 01/07/25 04:05 RBC Morphology Abnormal (NORMAL) 01/07/25 04:05 Anisocytosis 1+ A 01/07/25 04:05 Tear Drop Cells Slight 01/07/25 04:05 Stomatocytes 1+ A 01/07/25 04:05 PT 14.6 SECONDS (11.8-14.3) 01/06/25 14:40 INR Target Range - 01/06/25 14:40 INR 1.16 (0.8-1.3) 01/06/25 14:40 APTT 28.9 SECONDS (22.9-36.5) 01/06/25 14:40 PTT Comment - 01/06/25 14:40 D-Dimer 1.60 ug/ml (0.0-0.57) H 01/06/25 14:40 Sample Site Lra 01/06/25 14:25 ABG pH 7.440 (7.35-7.45) 01/06/25 14:25 ABG pCO2 44.0 mmHg (35.0-45.0) 01/06/25 14:25 ABG pO2 69.0 mmHg (80.0-100.0) L 01/06/25 14:25 ABG HCO3 29.9 mmol/L (22-26) H 01/06/25 14:25 ABG O2 Saturation 94.0 % (90-100) 01/06/25 14:25 ABG Base Excess 5.1 mmol/L (-2.0-2.0) H 01/06/25 14:25 Richard Test Pos 01/06/25 14:25 A-a Gradient 26.0 mmHg 01/06/25 14:25 FiO2 21.0 01/06/25 14:25 Blood Gas Comments Pt nikia well eb 01/06/25 14:25 Sodium 141 mmol/L (136-145) 01/07/25 04:05 Corrected Sodium 142 mmol/L (136-145) 01/07/25 04:05 Potassium 4.3 mmol/L (3.5-5.1) 01/07/25 04:05 Chloride 101 mmol/L (98-107) 01/07/25 04:05 Carbon Dioxide 32.1 mmol/L (21-32) H 01/07/25 04:05 BUN 16 mg/dL (7-18) 01/07/25 04:05 Creatinine 0.98 mg/dL (0.70-1.30) 01/07/25 04:05 Est GFR (MDRD) Af Amer > 60 (>60) 01/07/25 04:05 Est GFR (MDRD) Non-Af > 60 (>60) 01/07/25 04:05 Glucose 142 mg/dL (65-99) H 01/07/25 04:05 Lactic Acid 0.6 mmol/L (0.4-2.0) 01/06/25 14:47 Calcium 9.0 mg/dL (8.5-10.1) 01/07/25 04:05 Corrected Calcium 9.6 mg/dL (8.5-10.1) 01/07/25 04:05 Magnesium 2.0 mg/dL (2.0-2.9) 01/07/25 04:05 Total Bilirubin 0.20 mg/dL (0.2-1.0) 01/07/25 04:05 AST 17 Units/L (15-37) 01/07/25 04:05 ALT 22 Units/L (12-78) 01/07/25 04:05 Alkaline Phosphatase 72 Units/L (46-116) 01/07/25 04:05 Creatine Kinase 267 Units/L (39-308) 01/06/25 14:40 Troponin I High Sens 24.8 ng/L (4.0-60.0) 01/06/25 14:40 B-Natriuretic Peptide 523 pg/mL (0-79) H 01/06/25 14:40 Total Protein 7.4 g/dL (6.4-8.2) 01/07/25 04:05 Albumin 3.2 g/dL (3.4-5.0) L 01/07/25 04:05 Globulin 4.2 g/dL (2.5-4.5) 01/07/25 04:05 Albumin/Globulin Ratio 0.8 Ratio (1.1-2.1) L 01/07/25 04:05 Specimen Type Catherized urine 01/06/25 16:30 Urine Color Pale yellow (YELLOW) 01/06/25 16:30 Urine Appearance Clear (CLEAR) 01/06/25 16:30 Urine pH 6.0 (5.0 - 8.0) 01/06/25 16:30 Ur Specific [place] 1.015 (1.000-1.030) 01/06/25 16:30 Urine Protein Negative (NEGATIVE) 01/06/25 16:30 Urine Glucose (UA) Negative (NEGATIVE) 01/06/25 16:30 Urine Ketones Negative (NEGATIVE) 01/06/25 16:30 Urine Blood Negative (NEGATIVE) 01/06/25 16:30 Urine Nitrite Negative (NEGATIVE) 01/06/25 16:30 Urine Bilirubin Negative (NEGATIVE) 01/06/25 16:30 Urine Urobilinogen Normal (NORMAL) 01/06/25 16:30 Ur Leukocyte Esterase Negative (NEGATIVE) 01/06/25 16:30 SARS-CoV-2 (PCR) Negative (NEGATIVE) 01/06/25 14:20 Influenza Type A (PCR) Negative (NEGATIVE) 01/06/25 14:20 Influenza Type B (PCR) Negative (NEGATIVE) 01/06/25 14:20 RSV (PCR) Negative (NEGATIVE) 01/06/25 14:20 Review of Systems Constitutional: Weakness Eyes: No Symptoms Reported ENT: No Symptoms Reported Respiratory: Cough, SOB with Excertion and Sputum Cardiovascular: No Symptoms Reported Gastrointestinal: No Symptoms Reported Genitourinary: No Symptoms Reported Musculoskeletal: No Symptoms Reported Skin: No Symptoms Reported Neurological: No Symptoms Reported Physical Exam Vital Signs: Vital Signs Temperature 98.1 F Pulse Rate 87 Pulse Rate 87 Pulse Rate 87 Pulse Rate 79 Pulse Rate 78 Pulse Rate 83 Pulse Rate 76 Pulse Rate 72 Pulse Rate 77 Pulse Rate 75 Pulse Rate 69 Respiratory Rate 32 Respiratory Rate 32 Respiratory Rate 30 Respiratory Rate 26 Respiratory Rate 30 Respiratory Rate 34 Respiratory Rate 31 Respiratory Rate 27 Respiratory Rate 28 Respiratory Rate 29 Respiratory Rate 26 Blood Pressure 189/91 Blood Pressure 183/86 Blood Pressure 183/82 Blood Pressure 189/88 Blood Pressure 200/97 Blood Pressure 204/106 Blood Pressure 186/86 Blood Pressure 169/81 Blood Pressure 164/79 Blood Pressure 146/71 Blood Pressure 146/72 O2 Sat by Pulse Oximetry 94 O2 Sat by Pulse Oximetry 94 O2 Sat by Pulse Oximetry 94 O2 Sat by Pulse Oximetry 94 O2 Sat by Pulse Oximetry 95 O2 Sat by Pulse Oximetry 94 O2 Sat by Pulse Oximetry 96 O2 Sat by Pulse Oximetry 96 O2 Sat by Pulse Oximetry 95 O2 Sat by Pulse Oximetry 95 O2 Sat by Pulse Oximetry 96 Oriented: Normal Eyes: Normal Throat: Normal Respiratory: Rhonchi Throughout and Wheezes Throughout Cardiovascular: Normal Auscultation: Bowel Sounds: Normal Palpation: Normal Tenderness: Normal Skin: Normal Musculoskeletal: Normal Psychiatric: Normal Mood Description: Calm Affect: Normal Speech Pattern: Clear and Appropriate Assessment/Plan (1) Acute respiratory failure with hypoxia: Status: Acute (2) Acute exacerbation of chronic obstructive pulmonary disease (COPD): Status: Acute (3) Poorly-controlled hypertension: Status: Chronic (4) Pulmonary edema: Qualifiers: Chronicity: acute Qualified Code(s): J81.0 - Acute pulmonary edema Status: Acute (5) DDD (degenerative disc disease): Qualifiers: Disc-related pain type: discogenic back pain and lower extremity pain Spinal region: lumbosacral Qualified Code(s): M51.372 - Other intervertebral disc degeneration, lumbosacral region with discogenic back pain and lower extremity pain Status: Chronic (6) GERD (gastroesophageal reflux disease): Qualifiers: Esophagitis presence: without esophagitis Qualified Code(s): K21.9 - Gastro-esophageal reflux disease without esophagitis Status: Chronic (7) Insomnia: Qualifiers: Insomnia type: primary Qualified Code(s): F51.01 - Primary insomnia Status: Chronic (8) CAD (coronary artery disease): Qualifiers: Associated angina: without angina Coronary Disease-Associated Artery/Lesion type: three affiliated artery [place] vs. transplanted heart: three affiliated heart Qualified Code(s): I25.10 - Atherosclerotic heart disease of three affiliated coronary artery without angina pectoris Status: Chronic Review H&P Reviewed: Yes Patient was examined?: Yes
[2025-01-07] MEDS: WELLBUTRIN XL 300 MG (DAILY) PO SCH (10:15)
[2025-01-07] MEDS: NEURONTIN CAP 300 MG PO SCH (10:15)
[2025-01-07] MEDS: MYSOLINE TAB 250 MG PO SCH (10:15)
[2025-01-07] MEDS: ZETIA TAB 10 MG PO SCH (10:15)
[2025-01-07] MEDS: PEPCID TAB 20 MG PO SCH (10:16)
[2025-01-07] MEDS: NICOTINE PATCH TD SCH (10:16)
[2025-01-07] MEDS: ZITHROMAX INJ 500 MG VIAL 500 MG in D5W 250 ML IV 250 ML IV SCH (10:20)
[2025-01-07] MEDS: APRESOLINE TAB 25 MG PO SCH (11:20)
[2025-01-07] MEDS: APRESOLINE INJ 20 MG VIAL IVP ONE (11:23)
[2025-01-07] MEDS: NITRO-BID OINT 2% UD (E.R. USE ONLY) ONE (11:37)
[2025-01-07] MEDS: PULMICORT NEB TX 0.5 MG NEB ONE (11:37)
--- NOTE | 2025-01-07 11:51 | RAD ---
EXAM: CHEST, 1 VIEW HISTORY: COPD; COPD, HTN SX: ROSE, ORTHO, LEFT HIP, LEFT KNEE, BACK COMPARISON: 01/06/2025 TECHNIQUE: AP portable FINDINGS: Stable mildly prominent cardiac silhouette, accentuated by AP technique. Chronic mildly prominent in terstitial lung markings. No focal consolidation, pleural effusion, or visible pneumothorax. IMPRESSION: No acute cardiopulmonary findings. THIS IS AN ELECTRONICALLY VERIFIED FINAL REPORT 01/07/2025 11:48 AM - Electronically signed by Liam Baez MD
[2025-01-07] MEDS: ROBITUSSIN DM PO PRN (21:03)
[2025-01-07] MEDS: SINEquan PO SCH (21:05)
[2025-01-08 05:18] LABS: BASOPHILS % (AUTO) 0.1 % (0.2-1.0); HEMATOCRIT 42.2 % (42.0-54.0); HEMOGLOBIN 14.3 g/dL (13.5-18.0); LYMPHOCYTES # (AUTO) 0.7 X10^3/uL (1.3-2.9); LYMPHOCYTES % (AUTO) 6.8 % (21.0-51.0); MEAN CORPUSCULAR HEMOGLOBIN 33.2 pg (27.0-34.0); MEAN CORPUSCULAR HGB CONC 33.9 g/dL (33.0-35.0); MEAN CORPUSCULAR VOLUME 98.1 fL (80.0-100.0); MEAN PLATELET VOLUME 7.8 fL (7.4-11.0); MONOCYTES # (AUTO) 0.5 x10^3/uL (0.3-0.8); MONOCYTES % (AUTO) 4.6 % (0.0-13.0); NEUTROPHILS # (AUTO) 9.3 x10^3/uL (2.2-4.8); NEUTROPHILS % (AUTO) 88.5 % (42.0-75.0); PLATELET COUNT 218 X10^3/uL (150.0-450.0); RED CELL DISTRIBUTION WIDTH 14.1 % (11.6-16.5); WHITE BLOOD COUNT 10.5 X10^3/uL (3.6-10.0)
[2025-01-08 05:34] LABS: ALANINE AMINOTRANSFERASE 22 Units/L (12-78); ALBUMIN 2.9 g/dL (3.4-5.0); ALKALINE PHOSPHATASE 62 Units/L (46-116); ASPARTATE AMINO TRANSFERASE 18 Units/L (15-37); BLOOD UREA NITROGEN 31 mg/dL (7-18); CALCIUM 8.6 mg/dL (8.5-10.1); CARBON DIOXIDE 34.1 mmol/L (21-32); CHLORIDE 102 mmol/L (98-107); COR CA(FOR HYPOALB) 9.5 mg/dL (8.5-10.1); COR NA(FOR HYPERGLY) 141 mmol/L (136-145); CREATININE 1.15 mg/dL (0.70-1.30); GLUCOSE 126 mg/dL (65-99); MAGNESIUM 2.2 mg/dL (2.0-2.9); POTASSIUM 4.4 mmol/L (3.5-5.1); SODIUM 140 mmol/L (136-145); TOTAL PROTEIN 6.9 g/dL (6.4-8.2); eGFR NON BLACK RACES > 60 (>60)
[2025-01-08] MEDS: LASIX IVP SCH (08:23)
--- NOTE | 2025-01-08 10:25 | PCM.PROG ---
Progress Note Progress Note for Day of Date of Exam: 01/08/25 Subjective Subjective: Patient is a 74-year-old male that was admitted for COPD exacerbation and CHF exacerbation. This morning he is resting comfortably in bed. No acute events overnight. Labs/imaging: WBC 10.5, hemoglobin 14.3, platelets 218, sodium 140, potassium 4.4, creatinine 1.15, glucose 126, chest x-ray yesterday was negative for any acute cardiopulmonary findings. Blood cultures pending. Echo revealed ejection fraction 55%. Patient is currently receiving treatment with IV Lasix 40 mg daily. Will change tomorrow to p.o. Lasix 20 mg daily. Otherwise we will continue with Solu-Medrol and azith romycin. Patient continues to gradually improve. Otherwise continue current treatment plan. Continue closely monitor and follow-up labs/imaging. Past Medical Family Social History Allergies: Allergies lisinopril Allergy (Unknown, Verified 01/06/25 14:50) sulfamethoxazole [From Bactrim] Allergy (Unknown, Verified 01/06/25 14:50) Tetanus Vaccines and Toxoid Allergy (Unknown, Verified 01/06/25 14:50) trimethoprim [From Bactrim] Allergy (Unknown, Verified 01/06/25 14:50) Review of Systems ROS changes noted: see HPI Vital Signs and I&O's Vital Signs: Vital Signs Temperature 99.0 F Temperature 98.5 F Temperature 98.5 F Pulse Rate 76 Pulse Rate 72 Pulse Rate 66 Pulse Rate 61 Pulse Rate 62 Pulse Rate 65 Pulse Rate 69 Pulse Rate 61 Pulse Rate 62 Pulse Rate 62 Respiratory Rate 26 Respiratory Rate 25 Respiratory Rate 22 Respiratory Rate 21 Respiratory Rate 25 Respiratory Rate 27 Respiratory Rate 24 Respiratory Rate 26 Blood Pressure 155/72 Blood Pressure 158/74 Blood Pressure 160/73 Blood Pressure 135/89 Blood Pressure 168/77 Blood Pressure 148/74 Blood Pressure 167/71 O2 Sat by Pulse Oximetry 95 O2 Sat by Pulse Oximetry 95 O2 Sat by Pulse Oximetry 98 O2 Sat by Pulse Oximetry 96 O2 Sat by Pulse Oximetry 97 O2 Sat by Pulse Oximetry 95 O2 Sat by Pulse Oximetry 94 O2 Sat by Pulse Oximetry 94 O2 Sat by Pulse Oximetry 96 O2 Sat by Pulse Oximetry 92 Intake and Output: Intake & Output 01/05/25 01/06/25 01/07/25 01/08/25 23:59 23:59 23:59 23:59 Intake Total 420 / 420 1140 / 1140 320 / 320 Output Total 1500 / 1500 2100 / 2100 350 / 350 Balance -1080 / -1080 -960 / -960 -30 / -30 Physical Exam Oriented: Normal Eyes: Normal Throat: Normal Respiratory: Diminished Cardiovascular: Normal Auscultation: Bowel Sounds: Normal Tenderness: Normal Skin: Normal Musculoskeletal: Normal Psychiatric: Normal Mood Description: Calm Affect: Normal Speech Pattern: Clear and Appropriate Laboratory and Diagnostics 01/08/25 04:25 01/08/25 04:25 Labs: 01/06/25 14:47 Blood Blood Culture - Preliminary 01/06/25 14:13 Blood Blood Culture - Preliminary Laboratory WBC 10.5 X10^3/uL (3.6-10.0) H 01/08/25 04:25 RBC 4.30 X10^6/uL (4.7-6.0) L 01/08/25 04:25 Hgb 14.3 g/dL (13.5-18.0) 01/08/25 04:25 Hct 42.2 % (42.0-54.0) 01/08/25 04:25 MCV 98.1 fL (80.0-100.0) 01/08/25 04:25 MCH 33.2 pg (27.0-34.0) 01/08/25 04:25 MCHC 33.9 g/dL (33.0-35.0) 01/08/25 04:25 RDW 14.1 % (11.6-16.5) 01/08/25 04:25 Plt Count 218 X10^3/uL (150.0-450.0) 01/08/25 04:25 Plt Count Comment Adequate (ADEQUATE) 01/07/25 04:05 MPV 7.8 fL (7.4-11.0) 01/08/25 04:25 Neut % (Auto) 88.5 % (42.0-75.0) H 01/08/25 04:25 Lymph % (Auto) 6.8 % (21.0-51.0) L 01/08/25 04:25 [place] % (Auto) 4.6 % (0.0-13.0) 01/08/25 04:25 Eos % (Auto) 0.0 % (0.9-2.9) L 01/08/25 04:25 Baso % (Auto) 0.1 % (0.2-1.0) L 01/08/25 04:25 Neut # (Auto) 9.3 x10^3/uL (2.2-4.8) H 01/08/25 04:25 Lymph # (Auto) 0.7 X10^3/uL (1.3-2.9) L 01/08/25 04:25 [place] # (Auto) 0.5 x10^3/uL (0.3-0.8) 01/08/25 04:25 Eos # (Auto) 0.0 x10^3/uL (0.0-0.2) 01/08/25 04:25 Baso # (Auto) 0.0 X10^3/uL (0.0-0.1) 01/08/25 04:25 Absolute Nucleated RBC 0.0 /100WBC 01/08/25 04:25 Total Counted 100 01/07/25 04:05 Neutrophils % (Manual) 88 % (39-76) H 01/07/25 04:05 Band Neutrophils % 1 % (0-10) 01/07/25 04:05 Lymphocytes % (Manual) 8 % (13-43) L 01/07/25 04:05 Monocytes % (Manual) 3 % (4-9) L 01/07/25 04:05 Plt Morphology Comment Normal (NORMAL) 01/07/25 04:05 RBC Morphology Abnormal (NORMAL) 01/07/25 04:05 Anisocytosis 1+ A 01/07/25 04:05 Tear Drop Cells Slight 01/07/25 04:05 Stomatocytes 1+ A 01/07/25 04:05 PT 14.6 SECONDS (11.8-14.3) 01/06/25 14:40 INR Target Range - 01/06/25 14:40 INR 1.16 (0.8-1.3) 01/06/25 14:40 APTT 28.9 SECONDS (22.9-36.5) 01/06/25 14:40 PTT Comment - 01/06/25 14:40 D-Dimer 1.60 ug/ml (0.0-0.57) H 01/06/25 14:40 Sample Site Lra 01/06/25 14:25 ABG pH 7.440 (7.35-7.45) 01/06/25 14:25 ABG pCO2 44.0 mmHg (35.0-45.0) 01/06/25 14:25 ABG pO2 69.0 mmHg (80.0-100.0) L 01/06/25 14:25 ABG HCO3 29.9 mmol/L (22-26) H 01/06/25 14:25 ABG O2 Saturation 94.0 % (90-100) 01/06/25 14:25 ABG Base Excess 5.1 mmol/L (-2.0-2.0) H 01/06/25 14:25 Richard Test Pos 01/06/25 14:25 A-a Gradient 26.0 mmHg 01/06/25 14:25 FiO2 21.0 01/06/25 14:25 Blood Gas Comments Pt nikia well eb 01/06/25 14:25 Sodium 140 mmol/L (136-145) 01/08/25 04:25 Corrected Sodium 141 mmol/L (136-145) 01/08/25 04:25 Potassium 4.4 mmol/L (3.5-5.1) 01/08/25 04:25 Chloride 102 mmol/L (98-107) 01/08/25 04:25 Carbon Dioxide 34.1 mmol/L (21-32) H 01/08/25 04:25 BUN 31 mg/dL (7-18) H 01/08/25 04:25 Creatinine 1.15 mg/dL (0.70-1.30) 01/08/25 04:25 Est GFR (MDRD) Af Amer > 60 (>60) 01/08/25 04:25 Est GFR (MDRD) Non-Af > 60 (>60) 01/08/25 04:25 Glucose 126 mg/dL (65-99) H 01/08/25 04:25 Lactic Acid 0.6 mmol/L (0.4-2.0) 01/06/25 14:47 Calcium 8.6 mg/dL (8.5-10.1) 01/08/25 04:25 Corrected Calcium 9.5 mg/dL (8.5-10.1) 01/08/25 04:25 Magnesium 2.2 mg/dL (2.0-2.9) 01/08/25 04:25 Total Bilirubin 0.20 mg/dL (0.2-1.0) 01/08/25 04:25 AST 18 Units/L (15-37) 01/08/25 04:25 ALT 22 Units/L (12-78) 01/08/25 04:25 Alkaline Phosphatase 62 Units/L (46-116) 01/08/25 04:25 Creatine Kinase 267 Units/L (39-308) 01/06/25 14:40 Troponin I High Sens 24.8 ng/L (4.0-60.0) 01/06/25 14:40 B-Natriuretic Peptide 523 pg/mL (0-79) H 01/06/25 14:40 Total Protein 6.9 g/dL (6.4-8.2) 01/08/25 04:25 Albumin 2.9 g/dL (3.4-5.0) L 01/08/25 04:25 Globulin 4.0 g/dL (2.5-4.5) 01/08/25 04:25 Albumin/Globulin Ratio 0.7 Ratio (1.1-2.1) L 01/08/25 04:25 Specimen Type Catherized urine 01/06/25 16:30 Urine Color Pale yellow (YELLOW) 01/06/25 16:30 Urine Appearance Clear (CLEAR) 01/06/25 16:30 Urine pH 6.0 (5.0 - 8.0) 01/06/25 16:30 Ur Specific [place] 1.015 (1.000-1.030) 01/06/25 16:30 Urine Protein Negative (NEGATIVE) 01/06/25 16:30 Urine Glucose (UA) Negative (NEGATIVE) 01/06/25 16:30 Urine Ketones Negative (NEGATIVE) 01/06/25 16:30 Urine Blood Negative (NEGATIVE) 01/06/25 16:30 Urine Nitrite Negative (NEGATIVE) 01/06/25 16:30 Urine Bilirubin Negative (NEGATIVE) 01/06/25 16:30 Urine Urobilinogen Normal (NORMAL) 01/06/25 16:30 Ur Leukocyte Esterase Negative (NEGATIVE) 01/06/25 16:30 SARS-CoV-2 (PCR) Negative (NEGATIVE) 01/06/25 14:20 Influenza Type A (PCR) Negative (NEGATIVE) 01/06/25 14:20 Influenza Type B (PCR) Negative (NEGATIVE) 01/06/25 14:20 RSV (PCR) Negative (NEGATIVE) 01/06/25 14:20 Plan (1) Acute respiratory failure with hypoxia: Status: Acute (2) Acute exacerbation of chronic obstructive pulmonary disease (COPD): Status: Acute (3) Poorly-controlled hypertension: Status: Chronic (4) Pulmonary edema: Status: Acute Qualifiers: Chronicity: acute Qualified Code(s): J81.0 - Acute pulmonary edema (5) DDD (degenerative disc disease): Status: Chronic Qualifiers: Spinal region: lumbosacral Disc-related pain type: discogenic back pain and lower extremity pain Qualified Code(s): M51.372 - Other intervertebral disc degeneration, lumbosacral region with discogenic back pain and lower extremity pain (6) GERD (gastroesophageal reflux disease): Status: Chronic Qualifiers: Esophagitis presence: without esophagitis Qualified Code(s): K21.9 - [place] stro-esophageal reflux disease without esophagitis (7) Insomnia: Status: Chronic Qualifiers: Insomnia type: primary Qualified Code(s): F51.01 - Primary insomnia (8) CAD (coronary artery disease): Status: Chronic Qualifiers: Coronary Disease-Associated Artery/Lesion type: [place] artery [place] vs. transplanted heart: [place] heart Associated angina: without angina Qualified Code(s): I25.10 - Atherosclerotic heart disease of [place] coronary artery without angina pectoris
[2025-01-08] MEDS: TUSSIONEX PENNKINETIC SUSP PO PRN (16:44)
[2025-01-08] MEDS: TUSSIONEX PENNKINETIC SUSP ONE (18:04)
[2025-01-08] MEDS: LIORESAL PO PRN (21:09)
[2025-01-09 04:57] LABS: HEMOGLOBIN 14.3 g/dL (13.5-18.0)
[2025-01-09 05:09] LABS: ALANINE AMINOTRANSFERASE 96 Units/L (12-78); ALBUMIN 2.9 g/dL (3.4-5.0); ALKALINE PHOSPHATASE 62 Units/L (46-116); ASPARTATE AMINO TRANSFERASE 57 Units/L (15-37); BLOOD UREA NITROGEN 34 mg/dL (7-18); CALCIUM 8.7 mg/dL (8.5-10.1); CARBON DIOXIDE 33.7 mmol/L (21-32); CHLORIDE 102 mmol/L (98-107); COR CA(FOR HYPOALB) 9.6 mg/dL (8.5-10.1); COR NA(FOR HYPERGLY) 139 mmol/L (136-145); CREATININE 1.04 mg/dL (0.70-1.30); GLUCOSE 112 mg/dL (65-99); POTASSIUM 4.5 mmol/L (3.5-5.1); SODIUM 139 mmol/L (136-145); TOTAL PROTEIN 6.7 g/dL (6.4-8.2); eGFR NON BLACK RACES > 60 (>60)
[2025-01-09 05:12] LABS: BASOPHILS % (AUTO) 0.2 % (0.2-1.0); HEMATOCRIT 42.2 % (42.0-54.0); LYMPHOCYTES # (AUTO) 0.7 X10^3/uL (1.3-2.9); LYMPHOCYTES % (AUTO) 7.6 % (21.0-51.0); MEAN CORPUSCULAR HEMOGLOBIN 33.4 pg (27.0-34.0); MEAN CORPUSCULAR HGB CONC 33.9 g/dL (33.0-35.0); MEAN CORPUSCULAR VOLUME 98.5 fL (80.0-100.0); MEAN PLATELET VOLUME 8.2 fL (7.4-11.0); MONOCYTES # (AUTO) 0.4 x10^3/uL (0.3-0.8); MONOCYTES % (AUTO) 3.9 % (0.0-13.0); NEUTROPHILS # (AUTO) 8.6 x10^3/uL (2.2-4.8); NEUTROPHILS % (AUTO) 88.3 % (42.0-75.0); PLATELET COUNT 239 X10^3/uL (150.0-450.0); RED BLOOD COUNT 4.28 X10^6/uL (4.7-6.0); RED CELL DISTRIBUTION WIDTH 14.1 % (11.6-16.5); WHITE BLOOD COUNT 9.8 X10^3/uL (3.6-10.0)
[2025-01-09 07:44] VITALS: TEMP 98.1
[2025-01-09 08:47] VITALS: PULSE 69; O2SAT 95
[2025-01-09] MEDS: LASIX PO SCH (09:10)
[2025-01-09 09:21] VITALS: BP 166/74; RESP 30
== END 2025-01-09 10:55 | disposition home or self-care (01) ==
LOC: ICU 13:50 → ER 13:50 → ICU 18:10
PROVIDERS: ADMIT Internal Medicine; ATTEND Family Medicine
DX: K21.9 Gastro-esophageal reflux disease without esophagitis; B97.19 Other enterovirus as the cause of diseases classified elsewhere; J96.01 Acute respiratory failure with hypoxia; F41.8 Other specified anxiety disorders; J81.0 Acute pulmonary edema; R94.31 Abnormal electrocardiogram [ECG] [EKG]; I10 Essential (primary) hypertension; E83.42 Hypomagnesemia; R26.89 Other abnormalities of gait and mobility; F51.01 Primary insomnia; I16.0 Hypertensive urgency; I25.10 Atherosclerotic heart disease of native coronary artery without angina pectoris; B97.89 Other viral agents as the cause of diseases classified elsewhere; E78.5 Hyperlipidemia, unspecified; R73.09 Other abnormal glucose; R79.1 Abnormal coagulation profile; M51.372 Other intervertebral disc degeneration, lumbosacral region with discogenic back pain and lower extremity pain; J44.1 Chronic obstructive pulmonary disease with (acute) exacerbation; Z03.818 Encounter for observation for suspected exposure to other biological agents ruled out